=== PATIENT | male | born 1945 | race Caucasian/White ===

== ENCOUNTER 2020-08-27 01:11 | Inpatient (IN) | payer MEDICARE ==
--- NOTE | 2020-08-27 01:40 | ER Document Report ---
ED Fall - General Chief Complaint: Fall Stated Complaint: FALL Time Seen by Provider: 08/27/20 01:32 Primary Care Provider: RANDY KATHLEEN MD [Primary Care Provider] - Follow up as needed Mode of Arrival: Medic Information source: Patient, Emergency Med Personnel Notes: 75-year-old male arrives with chief complaint of weakness after he was walking from bedroom to the living room and his cane collapsed and he fell down. This occurred around 2000 hrs. he said he laid there for several hours. Patient has a history of CHF and hypertension. He was diagnosed with heart failure last year and over 8 years ago he was diagnosed with hyperglycemia patient reports has had 2 MIs in the past 1 at [place] and one at [facility]. He has a chronically irritated left eye. He also has his right leg edema +2 pitting greater than his left leg +1 pitting. He denies any chest pain abdominal pain shortness of breath. He reports he smokes 1 pack/day since he was a teenager and denies any history of COPD. Patient's oxygen saturations were 82% on oxygen while he was in the room. He was then placed on BiPAP and saturations climbed to 96% daughter reports he has not been taking his medicines properly. Patient's daughter Beatris is a good historian and she advises that his in 2011 and after being very desponded about this he has been on and off taking his medications especially over the last 3 to 4 months he has not taken any of his heart medications. She reports he says they make him feel tired and drained and do not work. He feels a lot better when he does not take them. - HPI Occurred: This evening Where: Home Context: Lost balance Associated symptoms: Difficulty breathing Quality of pain: No pain - Related data Allergies/Adverse Reactions: No Known Allergies Allergy (Verified 05/06/12 06:29) Past Medical History - General Information source: Patient, Relative, Emergency Med Personnel - Social History Smoking Status: Current Every Day Smoker Cigarette use (# per day): Yes Chew tobacco use (# tins/day): No Smoking Education Provided: Yes Frequency of alcohol use: Occasional Drug Abuse: None Lives with: Family Family History: Reviewed & Not Pertinent, COPD, DM Patient has suicidal ideation: No Patient has homicidal ideation: No Pulmonary Medical History: Denies: Hx Tuberculosis Psychiatric Medical History: Reports: Hx Depression Past Surgical History: Denies: Hx Pacemaker - Immunizations Hx Diphtheria, Pertussis, Tetanus Vaccination: Yes Review of Systems - Review of Systems Constitutional: No symptoms reported, See HPI, Weakness EENT: No symptoms reported Cardiovascular: No symptoms reported Respiratory: See HPI, Short of breath, Wheezing Gastrointestinal: No symptoms reported Genitourinary: No symptoms reported Male Genitourinary: No symptoms reported Musculoskeletal: See HPI, Leg swelling, Ankle swelling Skin: No symptoms reported Hematologic/Lymphatic: No symptoms reported Neurological/Psychological: See HPI, Weakness -: Yes All other systems reviewed and negative Physical Exam - Vital signs Vitals: Resp Pulse Ox 15 94 08/27/20 02:05 08/27/20 02:05 Interpretation: Hypoxic - General General appearance: Appears well, Alert - HEENT Head: Normocephalic, Atraumatic, Other - Except for 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 Eyes: Normal Extraocular movements intact: Yes Pupils: PERRL Ears: Normal Tympanic membrane: Normal Nasal: Normal Mouth/Lips: Normal Mucous membranes: Dry Pharynx: Normal Neck: Normal - Respiratory Respiratory status: Pursed lip breathing Chest status: Nontender Breath sounds: Wheezing Chest palpation: Normal - Cardiovascular Rhythm: Regular Heart sounds: Normal auscultation Murmur: No - Abdominal Inspection: Normal Distension: No distension Bowel sounds: Normal Tenderness: Nontender Organomegaly: No organomegaly - Rectal Prostate: Other - Deferred - Genitourinary Scrotum: Other - Deferred - Back Back: Normal, Nontender - Extremities General upper extremity: Normal inspection, Nontender, Normal color, Normal ROM, Normal temperature General lower extremity: Normal inspection, Nontender, Normal color, Normal ROM, Normal temperature, Normal weight bearing. No: Srinivasa's sign - Neurological Neuro grossly intact: Yes Cognition: Normal Orientation: AAOx4 [place] Coma Scale Eye Opening: Spontaneous [place] Coma Scale Verbal: Oriented [place] Coma Scale Motor: Obeys Commands [place] Coma Scale Total: 15 Speech: Normal Motor strength normal: LUE, RUE, LLE, RLE Sensory: Normal - Psychological Associated symptoms: Normal affect, Normal mood - Skin Skin Temperature: Warm Skin Moisture: Dry Skin Color: Dusky Course - Vital Signs Vital signs: Temp Pulse Resp BP Pulse Ox 15 94 08/27/20 02:05 08/27/20 02:05 - Laboratory Result Diagrams: 08/27/20 01:17 08/27/20 01:17 Laboratory results interpreted by me: 08/27/20 08/27/20 08/27/20 01:17 01:17 01:17 WBC 10.6 H Hgb 17.2 H Hct 52.0 H RDW 15.2 H Lymph % (Auto) 8.1 L Absolute Neuts (auto) 8.9 H Seg Neutrophils % 83.4 H PT 15.9 H ABG pO2 ABG HCO3 ABG O2 Saturation Chloride 97 L Glucose 155 H Total Bilirubin 1.8 H Direct Bilirubin 0.5 H Alkaline Phosphatase 169 H Total Protein 8.3 H 08/27/20 01:57 WBC Hgb Hct RDW Lymph % (Auto) Absolute Neuts (auto) Seg Neutrophils % PT ABG pO2 57.4 L ABG HCO3 24.9 H ABG O2 Saturation 90.0 L Chloride Glucose Total Bilirubin Direct Bilirubin Alkaline Phosphatase Total Protein - Diagnostic Test Radiology reviewed: Reports reviewed - EKG Interpretation by Me EKG shows normal: Sinus rhythm Rate: Normal Rhythm: NSR - Heart rate [address] depression along the inferior leads. Mild T wave changes laterally. Critical Care Note - Critical Care Note Comments: I discussed this case with Dr. Sourav Watson and he advises he will see this patient for admission this was done at 0 230 Discharge - Discharge Clinical Impression: Hypoxia, COVID-19 virus test result unknown Fall Qualifiers: Encounter type: initial encounter Qualified Code(s): W19.XXXA - Unspecified fall, initial encounter COPD (chronic obstructive pulmonary disease) Qualifiers: COPD type: emphysema Emphysema type: unspecified Qualified Code(s): J43.9 - Emphysema, unspecified Condition: Stable Disposition: ADMITTED INPATIENT [facility] Admitted: Telemetry Referrals: RANDY KATHLEEN MD [Primary Care Provider] - Follow up as needed
[2020-08-27 01:51] LABS: ABSOLUTE BASOPHILS # (AUTO) 0.1 10^3/uL (0.0-0.2); ABSOLUTE LYMPHOCYTES (AUTO) 0.9 10^3/uL (0.5-4.7); ABSOLUTE MONOCYTES (AUTO) 0.8 10^3/uL (0.1-1.4); ABSOLUTE NEUT (AUTO) 8.9 10^3/uL (1.7-8.2); BASOPHILS % (AUTO) 0.6 % (0-2); EOSINOPHILS % (AUTO) 0.2 % (0-6); HEMOGLOBIN 17.2 g/dL (13.5-17.0); LYMPHOCYTES % (AUTO) 8.1 % (13-45); MEAN CORPUSCULAR HGB CONC 33.1 g/dL (32.0-36.0); MEAN CORPUSCULAR VOLUME 97 fl (80-97); MONOCYTES % (AUTO) 7.7 % (3-13); PLATELET COUNT 300 10^3/uL (150-450); RED BLOOD COUNT 5.39 10^6/uL (4.35-5.55); RED CELL DISTRIBUTION WIDTH 15.2 % (11.5-14.0); SEGMENTED NEUTROPHILS % (AUTO) 83.4 % (42-78); TOTAL CELLS COUNTED % (AUTO) 100 %; WHITE BLOOD COUNT 10.6 10^3/uL (4.0-10.5)
[2020-08-27 01:56] LABS: INTERNATIONAL RATION (INR) 1.25
[2020-08-27 01:58] LABS: PROTHROMBIN TIME 15.9 SEC (11.4-15.4)
[2020-08-27 02:05] LABS: ARTERIAL BLOOD BASE EXCESS 0.2 mmol/L; ARTERIAL BLOOD H2CO3 1.23 mmol/L (1.05-1.35); ARTERIAL BLOOD HCO3 24.9 mmol/L (20-24); ARTERIAL BLOOD PO2 57.4 mmHg (80-100); ARTERIAL BLOOD TOTAL CO2 26.2 mmol/L (23-27)
[2020-08-27 02:09] LABS: ALBUMIN 4.4 g/dL (3.5-5.0); ALKALINE PHOSPHATASE 169 U/L (38-126); ANION GAP 15 (5-19); ASPARTATE AMINO TRANSFERASE 37 U/L (17-59); BILIRUBIN,DIRECT 0.5 mg/dL (0.0-0.4); BILIRUBIN,TOTAL 1.8 mg/dL (0.2-1.3); BLOOD UREA NITROGEN 13 mg/dL (7-20); CALCIUM 9.7 mg/dL (8.4-10.2); CARBON DIOXIDE 26 mmol/L (22-30); CHLORIDE 97 mmol/L (98-107); GLUCOSE 155 mg/dL (75-110); POTASSIUM 4.2 mmol/L (3.6-5.0); TOTAL PROTEIN 8.3 g/dL (6.3-8.2)
[2020-08-27 02:10] LABS: ALCOHOL < 10 mg/dL (NONE DETECTED)
[2020-08-27 02:10] LABS: ARTERIAL BLOOD FIO2 15L
[2020-08-27] MEDS ORDERED: BUMETANIDE INJ/PF 1 MG/4 ML SDV IV ONE (02:22)
[2020-08-27] MEDS ORDERED: AZITHROMYCIN INJ 500 MG VIAL IV ONE (02:22)
[2020-08-27] MEDS ORDERED: FAMOTIDINE INJ/PF 20 MG/2 ML SDV IV ONE (02:22)
[2020-08-27] MEDS ORDERED: DEXAMETHASONE SOD PHOS INJ 10 MG/1 ML VIAL IV ONE (02:23)
--- NOTE | 2020-08-27 02:23 | RADIOLOGY REPORT (SQ) ---
CLINICAL INDICATION: weak . TECHNIQUE: A single portable AP view was obtained of the chest at 0151 hours. COMPARISON: April 06, 2012. FINDINGS: The cardiomediastinal silhouette is enlarged and appears larger than it did in 2012. The lungs again demonstrate chronic purple lung change. Progressive airspace and pleural disease right lung base when compared to prior. No pneumothorax. The visualized bones are unremarkable. IMPRESSION: Progressive airspace and pleural disease right lung base when compared to prior.
[2020-08-27 02:24] LABS: TROPONIN I 0.044 ng/mL
--- NOTE | 2020-08-27 02:27 | RADIOLOGY REPORT (SQ) ---
INDICATION: weak, AMS. COMPARISON: None available CORRELATION: None TECHNIQUE: Noncontrast spiral axial CT images were obtained from the skull base to vertex. This exam was performed according to our departmental dose-optimization program, which includes automated exposure control, adjustment of the mA and/or kV according to patient size and/or use of iterative reconstruction techniques. FINDINGS: There is no evidence of acute intracranial hemorrhage, midline shift, mass effect or mass lesion. Shanks-white differentiation is normal. There is no evidence of acute large territory infarct. Ventricles and extracerebral spaces are within normal limits, for age. The visualized paranasal sinuses demonstrate retention cyst right maxillary sinus. The orbits and eyeballs are unremarkable. The mastoid air cells are clear. Skull base and calvarium appear intact. Trace venous air, presumed iatrogenic IMPRESSION: No acute intracranial process is identified.
[2020-08-27] MEDS ORDERED: IPRATROPIUM/ALBUTEROL 0.5-2.5 MG/3 ML AMPUL NEB PRN (03:09)
[2020-08-27] MEDS ORDERED: ACETAMINOPHEN 325 MG TABLET PO PRN (03:09)
[2020-08-27 03:23] LABS: APPEARANCE,URINE SLIGHTLY-CLOUDY; BILIRUBIN,URINE NEGATIVE (NEGATIVE); COLOR,URINE AMBER; GLUCOSE, URINE NEGATIVE (NEGATIVE); KETONES,URINE TRACE mg/dL (NEGATIVE); LEUKOCYTE ESTERASE,URINE NEGATIVE (NEGATIVE); NITRITE,URINE NEGATIVE (NEGATIVE); PROTEIN,URINE 100 mg/dL (NEGATIVE); URINE SPECIFIC GRAVITY 1.021
[2020-08-27] MEDS ORDERED: DEXTROSE 50%-WATER 25 GM/50 ML DISP.SYRIN IV PRN ×2 (03:39)
[2020-08-27] MEDS ORDERED: DEXTROSE 40% GEL 15 GM TUBE PO PRN ×2 (03:39)
[2020-08-27] MEDS ORDERED: GLUCAGON,HUMAN RECOMB 1 MG INJ IM PRN (03:39)
--- NOTE | 2020-08-27 04:48 | PDOC H&P ---
History of Present Illness Admission Date/PCP: 08/27/20 02:48 ELPIDIO GRUBER PA-C Patient complains of: Fall, shortness of breath History of Present Illness: KELSY ZHENG is a 75 year old male with a history of CAD status post PCI, type 2 diabetes, hypertension and CHF who is brought in by his daughter after he had a fall this evening around 8 PM. Patient states that while he was trying to walk to the bedroom using his walker he slipped and fell down to the ground and was unable to get up until his daughter found him. Patient states that he does not know if he lost consciousness but he denies any chest pain, palpitation or lightheadedness immediately before or during the incident. He states he has been having a progressively worsening shortness of breath for the past few weeks with associated lower extremity swelling. He discontinued taking all his medications about 3 months back stating that they make him feel tired, unable to do anything and he says he feels better when he is not on medications. Currently he reports worsening of his back pain. Patient denies any chest pain, dizziness, palpitation, fever, cough, runny nose, body aches, nausea, vomiting or any change in his bowel or urinary habit. He denies any recent sick contact history. On arrival at the ED patient was saturating 82% on room air and he was placed on BiPAP which improved his saturation above 95%. Past Medical History Pulmonary Medical History: Denies: Tuberculosis Psychiatric Medical History: Reports: Depression Past Surgical History Past Surgical History: Denies: Pacemaker Social History Information Source: Patient Lives with: Alone Smoking Status: Current Every Day Smoker Hx Recreational Drug Use: No Drugs: None Hx Prescription Drug Abuse: No - Advance Directive Resuscitation Status: Full Code Family History Family History: Reviewed & Not Pertinent, COPD, DM Parental Family History Reviewed: Yes Children Family History Reviewed: Yes Sibling(s) Family History Reviewed.: Yes Medication/Allergy Home Medications: No Home Medications 1 05/06/12 Cephalexin Monohydrate [Keflex 500 mg Capsule] 500 mg PO QID 05/07/12 Glipizide [Glucotrol Xl 5 Mg Tab.Er] 5 mg PO QAM 05/07/12 Lisinopril [Prinivil 5 Mg Tablet] 5 mg PO DAILY 05/07/12 Metformin HCl [Glucophage 500 Mg Tablet] 500 mg PO DAILY 05/07/12 Multivit with Calcium,Iron,Min [Tab A Lupe] 1 each PO DAILY 05/07/12 Thiamine HCl [Thiamine 100 Mg Tablet] 100 mg PO DAILY 05/07/12 Allergies/Adverse Reactions: No Known Allergies Allergy (Verified 05/06/12 06:29) Review of Systems Constitutional: PRESENT: as per HPI, weakness Eyes: ABSENT: visual disturbances Ears: ABSENT: hearing changes Nose, Mouth, and Throat: ABSENT: headache(s), mouth pain, sore throat Cardiovascular: PRESENT: as per HPI Respiratory: PRESENT: as per HPI Gastrointestinal: ABSENT: abdominal pain, constipation, diarrhea, hematemesis, hematochezia, nausea, vomiting Genitourinary: ABSENT: dysuria, hematuria Musculoskeletal: PRESENT: back pain, muscle weakness Integumentary: ABSENT: rash, wounds Neurological: ABSENT: abnormal gait, abnormal speech, confusion, dizziness, focal weakness, syncope Psychiatric: PRESENT: depression. ABSENT: anxiety, homidical ideation, suicidal ideation Endocrine: ABSENT: cold intolerance, heat intolerance, polydipsia, polyuria Hematologic/Lymphatic: ABSENT: easy bleeding, easy bruising Physical Exam Vital Signs: Temp Pulse Resp BP Pulse Ox 97.1 F 22 H 156/109 H 94 08/27/20 02:08 08/27/20 02:08 08/27/20 02:08 08/27/20 02:08 Intake & Output 08/25/20 08/26/20 08/27/20 06:59 06:59 06:59 Weight 67.8 kg Additional comments: GENERAL APPEARANCE: Alert and oriented x3, mild respiratory distress HEENT: Normocephalic and atraumatic. Left eye has pink conjunctiva. Moist oral mucosa NECK: Supple. Has elevated JVD CHEST: Symmetric. Nontender to palpation. LUNGS: Clear with good air entry bilaterally. Has coarse crackles bilaterally. No wheezing appreciated HEART: Regular rate and rhythm with normal S1 and S2. No murmurs, gallops, or rubs. ABDOMEN: soft, active bowel sounds, no direct or rebound tenderness. No organomegaly detected. No CVA tenderness EXTREMITIES: No cyanosis, clubbing. Has bilateral lower extremity pitting edema with the right +2, left +1 MUSCULOSKELETAL: No deformity, atrophy noted PSYCHIATRIC: Recent and remote memory is intact. Appropriate mood and affect. SKIN: Warm, dry, and well perfused. NEUROLOGIC: No focal sensory or motor deficits are noted. Results Laboratory Results: 08/27/20 01:17 08/27/20 01:17 08/27/20 08/27/20 08/27/20 01:17 01:17 01:57 WBC 10.6 H RBC 5.39 Hgb 17.2 H Hct 52.0 H MCV 97 MCH 32.0 MCHC 33.1 RDW 15.2 H Plt Count 300 Seg Neutrophils % 83.4 H Carbonic Acid HCO3/H2CO3 Ratio ABG pH ABG pCO2 ABG pO2 ABG HCO3 ABG O2 Saturation ABG Base Excess FiO2 Sodium 137.7 Potassium 4.2 Chloride 97 L Carbon Dioxide 26 Anion Gap 15 BUN 13 Creatinine 1.00 Est GFR ( Amer) > 60 Glucose 155 H Lactic Acid 2.9 H Calcium 9.7 Total Bilirubin 1.8 H AST 37 Alkaline Phosphatase 169 H Total Protein 8.3 H Albumin 4.4 Urine Color Urine Appearance Urine pH Ur Specific [place] Urine Protein Urine Glucose (UA) Urine Ketones Urine Blood Urine Nitrite Ur Leukocyte Esterase Urine WBC (Auto) Urine RBC (Auto) 08/27/20 08/27/20 01:57 02:43 WBC RBC Hgb Hct MCV MCH MCHC RDW Plt Count Seg Neutrophils % Carbonic Acid 1.23 HCO3/H2CO3 Ratio 20:1 ABG pH 7.40 ABG pCO2 41.0 ABG pO2 57.4 L ABG HCO3 24.9 H ABG O2 Saturation 90.0 L ABG Base Excess 0.2 FiO2 15L Sodium Potassium Chloride Carbon Dioxide Anion Gap BUN Creatinine Est GFR ( Amer) Glucose Lactic Acid Calcium Total Bilirubin AST Alkaline Phosphatase Total Protein Albumin Urine Color JOSE Urine Appearance SLIGHTLY-CLOUDY Urine pH 5.0 Ur Specific [place] 1.021 Urine Protein 100 H Urine Glucose (UA) NEGATIVE Urine Ketones TRACE H Urine Blood NEGATIVE Urine Nitrite NEGATIVE Ur Leukocyte Esterase NEGATIVE Urine WBC (Auto) 1 Urine RBC (Auto) 0 08/27/20 01:17 Troponin I 0.044 NT-Pro-B Natriuret Pep 25610 H Impressions: Chest X-Ray 08/27/20 01:34 IMPRESSION: Progressive airspace and pleural disease right lung base when compared to prior. Head CT 08/27/20 01:34 IMPRESSION: No acute intracranial process is identified. Assessment and Plan - Diagnosis (1) Acute respiratory failure with hypoxia Is this a current diagnosis for this admission?: Yes Plan: Patient presents with worsening shortness of breath Oxygen saturation on arrival was 82% on room air Likely due to acute on chronic congestive heart failure and possible previously undiagnosed COPD exacerbation Chest x-ray shows progressive airspace pleural disease with cardiomegaly ABG showed pH/PCO2/PO2=> 7.4 0/41/57 Started on Lasix, strict I&O's, daily weight, fluid restriction Continue breathing treatment, steroid Currently saturating well on a BiPAP and will transfuse him to intranasal oxygen Was tested for COVID-19 at ED, follow-up with result (2) Acute on chronic congestive heart failure Is this a current diagnosis for this admission?: Yes Plan: Likely precipitated by medication noncompliance Presents with shortness of breath, orthopnea, leg swelling Chest x-ray shows a pattern of airspace disease, cardiomegaly and some sign of pulmonary vascular congestion BNP elevated at 25,000 Started on IV Lasix Strict I&O's, daily weight, fluid restriction 2D echo in the morning (3) Elevated troponin Is this a current diagnosis for this admission?: Yes Plan: Currently patient denies any chest pain Has a history of CAD s/p PCI a year ago Initial troponin was 0.044 EKG shows right bundle branch block We will continue trending cardiac enzymes and EKG every 6 hourly Restarted him on aspirin, Plavix, atorvastatin, metoprolol Will consider cardiology consult (4) Elevated lactic acid level Is this a current diagnosis for this admission?: Yes Plan: Likely due to hypoxia from heart failure Currently has no sign of sepsis Repeat lactic acid level in the morning (5) Type 2 diabetes mellitus Is this a current diagnosis for this admission?: Yes Plan: Patient has been off of his medication for the past 3 months He is on Metformin and glipizide at home Started him on sliding scale insulin, Accu-Chek and hypoglycemia protocol On diabetic diet (6) Hypertension Is this a current diagnosis for this admission?: Yes Plan: Restarted patient's home medication occluding losartan, metoprolol Low-sodium diet (7) History of coronary artery disease Is this a current diagnosis for this admission?: Yes Plan: CAD status post PCI a year ago, now chest pain-free Cardiac enzyme and EKG for elevated troponin as stated above Continue aspirin, Plavix and atorvastatin (8) Tobacco dependence Is this a current diagnosis for this admission?: Yes Plan: Currently patient smokes 1 pack a day Provided tobacco cessation counseling Patient declined nicotine patch while inpatient (9) Fall Qualifiers: Encounter type: initial encounter Qualified Code(s): W19.XXXA - Unspecified fall, initial encounter Is this a current diagnosis for this admission?: Yes Plan: Likely due to physical deconditioning CT head was negative for acute findings On fall precaution PT, OT consult has been placed (10) Swelling of left lower extremity Is this a current diagnosis for this admission?: Yes Plan: Patient has bilateral lower extremity swelling with the left greater than the right We will obtain Doppler venous ultrasound of the left lower extremity - Time Time Spent with patient: 35 or more minutes Total Critical Time (Minutes): 45 Smoking Cessation Education: 3 to 10 minutes Medications reviewed and adjusted accordingly: Yes Anticipated Discharge Disposition: [facility] Anticipated Discharge Timeframe: within 72 hours - Inpatient Certification Based on my medical assessment, after consideration of the patient's comorbidities, presenting symptoms, or acuity I expect that the services needed warrant INPATIENT care.: Yes I certify that my determination is in accordance with my understanding of Medicare's requirements for reasonable and necessary INPATIENT services [42 CFR 412.3e].: Yes Medical Necessity: Significant Comorbidiites Make Outpatient Treatment Too Risky, Need Close Monitoring Due to Risk of Patient Decompensation, Need For Continuous Telemetry Monitoring, Risk of Complication if Not Cared For in Hospital Post Hospital Care: D/C or Transfer Summary
--- NOTE | 2020-08-27 08:34 | EKG REPORT ---
SEVERITY:- ABNORMAL ECG - SINUS RHYTHM LEFT ATRIAL ABNORMALITY RBBB AND LPFB : Confirmed by: Lorraine Husain MD 27-Aug-2020 08:33:47
[2020-08-27] MEDS: INSULIN REG, HUMAN 100 UNIT/ML 3 ML VIAL (PYX) SUBCUT SCH ×4 (08:38→22:59)
[2020-08-27] MEDS: FUROSEMIDE INJ/PF 40 MG/4 ML SDV IV SCH ×2 (09:07→22:56)
[2020-08-27] MEDS: ENOXAPARIN SODIUM INJ 40 MG/0.4 ML DISP.SYRIN SUBCUT SCH (09:07)
[2020-08-27] MEDS: CLOPIDOGREL BISULFATE 75 MG TABLET PO SCH (09:10)
[2020-08-27] MEDS: OXYCODONE-ACETAMINOPHEN 5-325 MG TABLET PO PRN ×2 (09:10→18:07)
[2020-08-27] MEDS: ASPIRIN 81 MG TABLET, CHEWABLE PO SCH (09:10)
[2020-08-27] MEDS: FAMOTIDINE 20 MG TABLET PO SCH ×2 (09:11→22:56)
[2020-08-27] MEDS ORDERED: METOPROLOL SUCCINATE 25 MG TAB.SR.24H PO SCH (10:00)
[2020-08-27] MEDS ORDERED: LOSARTAN POTASSIUM 25 MG TABLET PO SCH (10:00)
[2020-08-27 11:54] LABS: TRIGLYCERIDES 62 mg/dL (<150)
[2020-08-27 11:59] LABS: ANION GAP 13 (5-19); BLOOD UREA NITROGEN 17 mg/dL (7-20); C-REACTIVE PROTEIN 43.6 mg/L (<10.0); CARBON DIOXIDE 21 mmol/L (22-30); CHLORIDE 100 mmol/L (98-107); GLUCOSE 237 mg/dL (75-110); POTASSIUM 4.2 mmol/L (3.6-5.0)
[2020-08-27 12:06] LABS: DIRECT LDL 52 mg/dL (<100)
--- NOTE | 2020-08-27 12:17 | RADIOLOGY REPORT (SQ) ---
EXAM DESCRIPTION: MRI HEAD WITHOUT IMAGES COMPLETED DATE/TIME: 08/27/2020 11:59 am REASON FOR STUDY: TIA/CVA (fall, slurred speech) COMPARISON: None. TECHNIQUE: Multiplanar imaging includes non-contrasted T1, T2, FLAIR, and diffusion with ADC map seq uences. Images stored on PACS. LIMITATIONS: None. FINDINGS: ANATOMY: No anomalies. Normal vascular flow voids. Pituitary fossa normal. CSF SPACES: Normal in size and contour. No hemorrhage. CEREBRUM: Sulci and gyri normal in size and contour. Areas of increased white matter signal on FLAIR imaging. No evidence of hemorrhage, mass, or extraaxial fluid collection. POSTERIOR FOSSA: No signal alteration. No hemorrhage. No edema, masses or mass effect. Internal brenda tory canals, cerebello-pontine angles, mastoids normal. DIFFUSION IMAGING: Negative for acute or sub-acute infarction. ORBITS: No masses. Globes normal. PARANASAL SINUSES: Mucous retention cyst in the right maxillary sinus. OTHER: No other significant finding. IMPRESSION: Mild chronic microvascular ischemia. Right maxillary sinus disease. No acute intracran ial imaging findings. EVIDENCE OF ACUTE STROKE: NO. TECHNICAL DOCUMENTATION: JOB ID: [id number] [employer]- All Rights Reserved Reading location - IP/workstation name: [email or web address]
[2020-08-27] MEDS ORDERED: NICOTINE 21 MG/24 HR PATCH.TD24 TD PRN (15:20)
--- NOTE | 2020-08-27 15:25 | PDOC PROGRESS REPORT ---
Subjective Date:: 08/27/20 Reason For Visit: FALL, COPD Physical Exam Vital Signs: Temp Pulse Resp BP Pulse Ox 97.6 F 90 18 128/95 H 95 08/27/20 11:27 08/27/20 11:27 08/27/20 11:27 08/27/20 11:27 08/27/20 11:27 Intake & Output 08/26/20 08/27/20 08/28/20 06:59 06:59 06:59 Output Total 100 Balance -100 Weight 66 kg General appearance: PRESENT: no acute distress, well-developed, well-nourished Head exam: PRESENT: atraumatic, normocephalic Eye exam: PRESENT: conjunctival injection - Left eye; no drainage, conjunctiva pink, EOMI, PERRLA, other. ABSENT: scleral icterus Mouth exam: PRESENT: moist, tongue midline Teeth exam: PRESENT: poor dentation Neck exam: PRESENT: JVD. ABSENT: carotid bruit, lymphadenopathy, thyromegaly Respiratory exam: PRESENT: crackles, symmetrical, unlabored, other - supplemental oxygen. ABSENT: rales, rhonchi, wheezes Cardiovascular exam: PRESENT: RRR, +S1, +S2. ABSENT: diastolic murmur, rubs, systolic murmur Pulses: PRESENT: normal dorsalis pedis pul Vascular exam: PRESENT: normal capillary refill GI/Abdominal exam: PRESENT: normal bowel sounds, soft. ABSENT: distended, guarding, mass, organolmegaly, rebound, tenderness Rectal exam: PRESENT: deferred Gentrourinary exam: PRESENT: indwelling catheter Extremities exam: PRESENT: full ROM, +1 edema - RLE. ABSENT: calf tenderness, clubbing, pedal edema Neurological exam: PRESENT: alert, awake, oriented to person, oriented to place, oriented to time, oriented to situation, CN II-XII grossly intact, other - Rt facial droop; slurred speech. [employer] equal bilaterally. Plantar/dorsi felxion 4/5 bilaterally.. ABSENT: motor sensory deficit Psychiatric exam: PRESENT: appropriate affect, normal mood. ABSENT: homicidal ideation, suicidal ideation Skin exam: PRESENT: dry, intact, warm. ABSENT: cyanosis, rash Results Laboratory Results: 08/27/20 01:17 08/27/20 11:24 08/27/20 08/27/20 08/27/20 01:17 01:17 01:57 WBC 10.6 H RBC 5.39 Hgb 17.2 H Hct 52.0 H MCV 97 MCH 32.0 MCHC 33.1 RDW 15.2 H Plt Count 300 Seg Neutrophils % 83.4 H Carbonic Acid HCO3/H2CO3 Ratio ABG pH ABG pCO2 ABG pO2 ABG HCO3 ABG O2 Saturation ABG Base Excess FiO2 Sodium 137.7 Potassium 4.2 Chloride 97 L Carbon Dioxide 26 Anion Gap 15 BUN 13 Creatinine 1.00 Est GFR ( Amer) > 60 Glucose 155 H Lactic Acid 2.9 H Calcium 9.7 Ferritin Total Bilirubin 1.8 H AST 37 Alkaline Phosphatase 169 H C-Reactive Protein Total Protein 8.3 H Albumin 4.4 Triglycerides Cholesterol LDL Cholesterol Direct VLDL Cholesterol HDL Cholesterol Urine Color Urine Appearance Urine pH Ur Specific [place] Urine Protein Urine Glucose (UA) Urine Ketones Urine Blood Urine Nitrite Ur Leukocyte Esterase Urine WBC (Auto) Urine RBC (Auto) 08/27/20 08/27/20 08/27/20 01:57 02:43 10:06 WBC RBC Hgb Hct MCV MCH MCHC RDW Plt Count Seg Neutrophils % Carbonic Acid 1.23 HCO3/H2CO3 Ratio 20:1 ABG pH 7.40 ABG pCO2 41.0 ABG pO2 57.4 L ABG HCO3 24.9 H ABG O2 Saturation 90.0 L ABG Base Excess 0.2 FiO2 15L Sodium Potassium Chloride Carbon Dioxide Anion Gap BUN Creatinine Est GFR ( Amer) Glucose Lactic Acid 1.9 Calcium Ferritin Total Bilirubin AST Alkaline Phosphatase C-Reactive Protein Total Protein Albumin Triglycerides Cholesterol LDL Cholesterol Direct VLDL Cholesterol HDL Cholesterol Urine Color JOSE Urine Appearance SLIGHTLY-CLOUDY Urine pH 5.0 Ur Specific [place] 1.021 Urine Protein 100 H Urine Glucose (UA) NEGATIVE Urine Ketones TRACE H Urine Blood NEGATIVE Urine Nitrite NEGATIVE Ur Leukocyte Esterase NEGATIVE Urine WBC (Auto) 1 Urine RBC (Auto) 0 08/27/20 08/27/20 11:24 11:24 WBC RBC Hgb Hct MCV MCH MCHC RDW Plt Count Seg Neutrophils % Carbonic Acid HCO3/H2CO3 Ratio ABG pH ABG pCO2 ABG pO2 ABG HCO3 ABG O2 Saturation ABG Base Excess FiO2 Sodium 133.6 L Potassium 4.2 Chloride 100 Carbon Dioxide 21 L Anion Gap 13 BUN 17 Creatinine 0.99 Est GFR ( Amer) > 60 Glucose 237 H Lactic Acid Calcium 9.0 Ferritin 107.00 Total Bilirubin AST Alkaline Phosphatase C-Reactive Protein 43.6 H Total Protein Albumin Triglycerides 62 Cholesterol 96.30 LDL Cholesterol Direct 52 VLDL Cholesterol 12.0 HDL Cholesterol 35 L Urine Color Urine Appearance Urine pH Ur Specific [place] Urine Protein Urine Glucose (UA) Urine Ketones Urine Blood Urine Nitrite Ur Leukocyte Esterase Urine WBC (Auto) Urine RBC (Auto) 08/27/20 08/27/20 08/27/20 01:17 06:13 13:30 Troponin I 0.044 0.027 0.030 NT-Pro-B Natriuret Pep 27247 H Impressions: Head MRI 08/27/20 00:00 IMPRESSION: Mild chronic microvascular ischemia. Right maxillary sinus disease. No acute intracranial imaging findings. EVIDENCE OF ACUTE STROKE: NO. Chest X-Ray 08/27/20 01:34 IMPRESSION: Progressive airspace and pleural disease right lung base when compared to prior. Head CT 08/27/20 01:34 IMPRESSION: No acute intracranial process is identified. Assessment and Plan - Diagnosis (1) Acute on chronic congestive heart failure Is this a current diagnosis for this admission?: Yes Plan: Likely precipitated by medication noncompliance Presents with shortness of breath, orthopnea, leg swelling Chest x-ray shows a pattern of airspace disease, cardiomegaly and some sign of pulmonary vascular congestion BNP elevated at 25,000 Echocardiogram pending. Admitted to [facility] on continuous telemetry. Oxygen and BiPAP prn Started on IV Lasix Strict I&O's, daily weight, fluid restriction Have started aspirin, statin and plavix. Have started losartan and Toprol XL. Low threshold for cardiology consultation. 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 (2) Acute respiratory failure with hypoxia Is this a current diagnosis for this admission?: Yes Plan: Patient presents with worsening shortness of breath Oxygen saturation on arrival was 82% on room air Likely due to acute on chronic congestive heart failure and possible previously undiagnosed COPD exacerbation Chest x-ray shows progressive airspace pleural disease with cardiomegaly ABG showed pH/PCO2/PO2=> 7.4 0/57 D. dimer is elevated; will obtain CTA chest COVID pending Started on Lasix, strict I&O's, daily weight, fluid restriction Continue breathing treatment, steroids Continue supplemental oxygen and BiPAP prn (3) Elevated troponin Is this a current diagnosis for this admission?: Yes Plan: Currently patient denies any chest pain Has a history of CAD s/p PCI a year ago Troponin 0.044-> 0.30 EKG shows right bundle branch block Monitor on telemetry Restarted him on aspirin, Plavix, atorvastatin, metoprolol Will consider cardiology consult (4) Fall Qualifiers: Encounter type: initial encounter Qualified Code(s): W19.XXXA - Unspecified fall, initial encounter Is this a current diagnosis for this admission?: Yes Plan: Likely due to physical deconditioning CT head was negative for acute findings MRI negative for CVA On fall precaution PT, OT consult has been placed (5) History of coronary artery disease Is this a current diagnosis for this admission?: Yes Plan: CAD status post PCI a year ago, now chest pain-free Cardiac enzyme and EKG for elevated troponin as stated above Continue aspirin, Plavix and atorvastatin (6) Hypertension Is this a current diagnosis for this admission?: Yes Plan: Antihypertensives as above. Low-sodium diet (7) Swelling of left lower extremity Is this a current diagnosis for this admission?: Yes Plan: Patient has bilateral lower extremity swelling with the left greater than the right We will obtain Doppler venous ultrasound of the left lower extremity (8) Tobacco dependence Is this a current diagnosis for this admission?: Yes Plan: Currently patient smokes 1 pack a day Provided tobacco cessation counseling Nicotine patches prn (9) Type 2 diabetes mellitus Is this a current diagnosis for this admission?: Yes Plan: Hemoglobin A1C 7.3% Patient has been off of his medication for the past 3 months He is on Metformin and glipizide at home; will hold oral antidiabetic agents w/ admitted Started him on sliding scale insulin, Accu-Chek and hypoglycemia protocol On diabetic diet preschool assistant principal and patient educator consulted. (10) Elevated lactic acid level Is this a current diagnosis for this admission?: Yes Plan: Resolved. Likely due to hypoxia from heart failure Currently has no sign of sepsis (11) Suspected COVID-19 virus infection Is this a current diagnosis for this admission?: Yes Plan: Covid pending D-dimer elevated to 3.32 Ferritin 107, LDH 255, CRP 43.6 Will obtain CTA chest to evaluate for pulmonary embolus versus evidence of viral pneumonia versus pulmonary edema. Consider full dose Lovenox pending CTA and Covid testing results. Provide supplemental oxygen as needed maintain saturations greater than 89%. As needed nebulizer treatments. Encourage pulmonary toilet. Isolation precautions. (12) Slurred speech Is this a current diagnosis for this admission?: Yes Plan: CVA is RULED OUT. Patient noted to have slurred speech and a slight right side facial droop. Patient reports that his speech is worse than his baseline. Per family, the patient does have intermittent slurred speech although he is currently worse than normal. Patient did experience a fall at home. He is diabetic with hypertension and CAD; has not been taking his medications for [address] was negative for acute findings. Fortunately follow-up MRI head was negative for CVA. Did show right maxillary sinus disease. Echocardiogram and carotid Doppler pending. Lipid panel is acceptable. A1c 7.3. Continues on daily aspirin, statin, Plavix therapy. PT/OT/ST consultations pending. - Time Time Spent with patient: 35 or more minutes Medications reviewed and adjusted accordingly: Yes Anticipated Discharge Disposition: Home with Home Health Anticipated Discharge Timeframe: >72 hrs
--- NOTE | 2020-08-27 16:15 | RADIOLOGY REPORT (SQ) ---
EXAM DESCRIPTION: CAROTID DOPPLER IMAGES COMPLETED DATE/TIME: 08/27/2020 4:03 pm REASON FOR STUDY: CVA COMPARISON: None. TECHNIQUE: Grayscale ultrasound, Doppler velocity and spectra, and color Doppler images acquired of the extra-cranial carotid and vertebral arteries. Images stored on PACS. LIMITATIONS: None. FINDINGS: RIGHT CAROTID CCA Velocities: Within normal limits. ICA Velocities Peak systolic 2.95 m/s. End diastolic 1.15 m/s. Proximal ICA/CCA peak systolic ratio 10.8. Moderate plaque proximal ICA. LEFT CAROTID CCA Velocities: Within normal limits. ICA Velocities Peak systolic 0.34 m/s. End diastolic 0.1 m/s. Proximal ICA/CCA peak systolic ratio 1.14. Mild plaque bifurcation and proximal ICA. VERTEBRAL ARTERIES: Antegrade flow. Normal waveforms. SUBCLAVIAN ARTERIES: Not imaged. OTHER: No other significant finding. IMPRESSION: Right: 70-90% stenosis ICA. Left: No significant stenosis. RECOMMENDATION: Consider correlation with CT angiography. Doppler can overestimate degree of stenos is. COMMENT: Quality ID #[id number]: Velocity criteria are extrapolated from the diameter data as defined by t he Society of Radiologists in Ultrasound Consensus Conference. Radiology 2003: 229; 340-346. TECHNICAL DOCUMENTATION: JOB ID: [id number] 2010 [employer]- All Rights Reserved Reading location - IP/workstation name: [email or web address]
--- NOTE | 2020-08-27 16:15 | RADIOLOGY REPORT (SQ) ---
EXAM DESCRIPTION: VENOUS UNILATERAL LOWER IMAGES COMPLETED DATE/TIME: 08/27/2020 4:02 pm REASON FOR STUDY: Right lower extremity swelling to rule out DVT COMPARISON: None. TECHNIQUE: Dynamic and static vieira scale and color images acquired of the right leg venous system. S elected spectral images acquired with additional compression and augmentation maneuvers. The contrala teral common femoral vein and saphenofemoral junction were also imaged. Images stored on PACS. LIMITATIONS: None. FINDINGS: COMMON FEMORAL: Normal phasicity, compression and augmentation. No visualized echogenic ma terial on vieira scale. No defects on color images. FEMORAL: Normal compression and augmentation. No visualized echogenic material on vieira scale. No defe cts on color images. POPLITEAL: Normal compression, augmentation. No visualized echogenic material on vieira scale. No defec ts on color images. CALF VESSELS: Normal compression, augmentation. No visualized echogenic material on vieira scale. No de fects on color images. GSV and SSV: Normal compression, augmentation. No visualized echogenic material on vieira scale. No def ects on color images. ANY DEEP VENOUS INSUFFICIENCY: Not evaluated. ANY EVIDENCE OF POPLITEAL CYST: No. OTHER: No other significant finding. CONTRALATERAL COMMON FEMORAL VEIN AND SAPHENOFEMORAL JUNCTION: Normal phasicity, compression and augmentation. No visualized echogenic material on vieira scale. No de fects on color images. IMPRESSION: NO EVIDENCE DVT OR SVT IN THE RIGHT LEG. TECHNICAL DOCUMENTATION: JOB ID: [id number] 2010 [employer]- All Rights Reserved Reading location - IP/workstation name: [email or web address]
--- NOTE | 2020-08-27 17:38 | RADIOLOGY REPORT (SQ) ---
EXAM DESCRIPTION: CTA CHEST IMAGES COMPLETED DATE/TIME: 08/27/2020 5:06 pm REASON FOR STUDY: hypoxia, fall, elevated d dimer COMPARISON: None. TECHNIQUE: CT scan of the chest performed using helical scanning technique with dynamic intravenous contrast injection. Images reviewed with lung, soft tissue and bone windows. Reconstructed coronal and sagittal MPR images reviewed. Additional 3 dimensional post-processing performed to develop Maximal Intensity Projection images ([place] P). All images stored on PACS. All CT scanners at this facility use dose modulation, iterative reconstruction, and/or weight based d osing when appropriate to reduce radiation dose to as low as reasonably achievable (ALARA). [facility]: Dose Right [facility]: CareDose [facility]: Dose Right [facility]: Teradose 4D [facility]: [employer] CONTRAST TYPE AND DOSE: contrast/concentration: Isovue 350.00 mmol/ml; Total Contrast Delivered: 65. 0 ml; Total Saline Delivered: 45.7 ml Contrast bolus optimized for the pulmonary arteries. Not diagnostic for the aorta. RENAL FUNCTION: BUN 17 creatinine 1 RADIATION DOSE: CT Rad equipment meets quality standard of care and radiation dose reduction techniq ues were employed. CTDIvol: 13.2 - 14.3 mGy. DLP: 516 mGy-cm. . LIMITATIONS: None. FINDINGS: LUNGS AND PLEURA: Extensive centrilobular emphysema. No focal consolidation. Minimal ple ural effusions. AORTA AND GREAT VESSELS: No aneurysm. Contrast bolus not optimized for the aorta. HEART: No pericardial effusion. Moderate to marked coronary artery calcifications. PULMONARY ARTERIES: No emboli visualized in the main pulmonary arteries or the segmental branches. HILAR AND MEDIASTINAL STRUCTURES: Questionable thickening of the distal esophagus. HARDWARE: None in the chest. UPPER ABDOMEN: No significant findings. Limited exam. THYROID AND OTHER SOFT TISSUES: No masses. No adenopathy. BONES: No acute or significant finding. 3D MIPS: Confirm above findings. OTHER: No other significant finding. IMPRESSION: 1. There is no pulmonary embolus. There is no aortic aneurysm. 2. Extensive pulmonary emphysema. Minimal pleural effusions. 3. Questionable thickening of the distal esophagus. COMMENT: Quality ID # [id number]: Final reports with documentation of one or more dose reduction techniques (e.g., Automated exposure control, adjustment of the mA and/or kV according to patient size, use of iterative reconstruction technique) TECHNICAL DOCUMENTATION: JOB ID: [id number] 2010 [employer]- All Rights Reserved Reading location - IP/workstation name: [email or web address]
[2020-08-27] MEDS: DEXAMETHASONE SOD PHOSPHATE INJ 4 MG/1 ML VIAL IV SCH (18:07)
[2020-08-27] MEDS ORDERED: ATORVASTATIN CALCIUM 40 MG TABLET PO SCH (22:00)
--- NOTE | 2020-08-27 22:51 | XCELERA REPORT ---
[address] [address] Transthoracic Echocardiogram Report Name: KELSY ZHENG Age: 75 yrs Gender: Male : 1945 Patient Status: Inpatient Patient Location: ^[facility]^A Study Date: 08/27/2020 02:13 PM Height: 71 in Weight: 145 lb BSA: 1.8 m2 Procedure: A two-dimensional transthoracic echocardiogram with color flow and Doppler was performed. Study Quality: Fair. Reason For Study: chf, CVA History: CVA. CHF. Ordering Physician: SUDHIR ROSS Performed By: Nenita Quiros Interpretation Summary The left ventricle is moderately dilated. There is normal left ventricular wall thickness. LV EF is 25% Left ventricular systolic function is severely reduced. Doppler measurements suggest impaired left ventricular relaxation, which is associated with grade I/IV or mild diastolic dysfunction The IV septum and the anteroseptum are moderately hypokinetic.TThe rest of the LV espinoza are severely hypokinetic. Flattened septum is consistent with RV pressure/volume overload There is no thrombus. There is n ASD,VSD , or PFO seen. The right ventricle is moderately dilated. There is mild right ventricular hypertrophy. The right ventricular systolic function is mild to moderately reduced. The right atrium is mild to moderately dilated. The left atrium is moderately dilated. There is no evidence of mitral valve prolapse. There is no vegetation seen on the mitral valve. There is no mitral valve stenosis. There is a moderate to severe amount of mitral regurgitation There is no aortic valvular vegetation. There is no aortic valve stenosis There is no LVOT obstruction. There is a trace amount of aortic regurgitation There is aortic sclerosis without aortic stenosis. There is no tricuspid stenosis. There is servere pulmonary hypertension by echo RVSP is at least 69 mm of Hg , with RA mean of at least 20. There is a moderate to severe amount of tricuspid regurgitation There is no pulmonic valvular regurgitation. The aortic root is normal size. The inferior vena cava appeared dilated and did not change with respiration (RAP > 20 mmHg) There is no pericardial effusion. MMode/2D Measurements & Calculations RVDd: 3.2 cm LVIDd: 5.2 cm FS: 17.1 % EPSS: 1.5 cm IVSd: 0.90 cm LVIDs: 4.3 cm EDV(Teich): 127.7 ml LVPWd: 0.93 cm ESV(Teich): 82.3 ml EF(Teich): 35.5 % Ao root diam: 3.2 cm LVLd ap4: 9.2 cm SV(MOD-sp4): 38.0 ml EDV(MOD-sp4): 108.0 ml Ao root area: 7.9 cm2 LVLs ap4: 8.3 cm ACS: 2.0 cm ESV(MOD-sp4): 70.0 ml LA dimension: 3.4 cm EF(MOD-sp4): 35.2 % Doppler Measurements & Calculations MV E max cecelia: MV P1/2t max cecelia: Ao V2 max: LV V1 max P.3 cm/sec 66.7 cm/sec 89.3 cm/sec 1.2 mmHg MV A max cecelia: MV P1/2t: 52.5 msec Ao max P.2 mmHg LV V1 max: 97.6 cm/sec MVA(P1/2t): 4.2 cm2 54.4 cm/sec MV E/A: 0.68 MV dec slope: 372.4 cm/sec2 MV dec time: 0.18 sec PA V2 max: TR max cecelia: MV P1/2t-pr_phl: 44.3 cm/sec 350.2 cm/sec 52.5 msec PA max PG: TR max P.1 mmHg 0.79 mmHg Left Ventricle The left ventricle is moderately dilated. There is normal left ventricular wall thickness. LV EF is 25%. Left ventricular systolic function is severely reduced. Doppler measurements suggest impaired left ventricular relaxation, which is associated with grade I/IV or mild diastolic dysfunction. The IV septum and the anteroseptum are moderately hypokinetic.TThe rest of the LV espinoza are severely hypokinetic. Flattened septum is consistent with RV pressure/volume overload. There is no thrombus. There is n ASD,VSD , or PFO seen. Right Ventricle The right ventricle is moderately dilated. There is mild right ventricular hypertrophy. The right ventricular systolic function is mild to moderately reduced. Atria The right atrium is mild to moderately dilated. The left atrium is moderately dilated. Mitral Valve There is no evidence of mitral valve prolapse. There is no vegetation seen on the mitral valve. There is no mitral valve stenosis. There is a moderate to severe amount of mitral regurgitation. Aortic Valve There is no aortic valvular vegetation. There is no aortic valve stenosis. There is no LVOT obstruction. There is aortic sclerosis without aortic stenosis. There is a trace amount of aortic regurgitation. Tricuspid Valve There is no tricuspid stenosis. There is servere pulmonary hypertension by echo. RVSP is at least 69 mm of Hg , with RA mean of at least 20. There is a moderate to severe amount of tricuspid regurgitation. Pulmonic Valve There is no pulmonic valvular stenosis. There is no pulmonic valvular regurgitation. Great Vessels The aortic root is normal size. The inferior vena cava appeared dilated and did not change with respiration (RAP > 20 mmHg). Effusions There is no pericardial effusion. : SUDHIR ROSS Lakshmi
[2020-08-27] MEDS: ATORVASTATIN CALCIUM 40 MG TABLET PO SCH (22:56)
[2020-08-28 06:13] LABS: ABSOLUTE LYMPHOCYTES (AUTO) 0.6 10^3/uL (0.5-4.7); ABSOLUTE MONOCYTES (AUTO) 0.7 10^3/uL (0.1-1.4); ABSOLUTE NEUT (AUTO) 9.5 10^3/uL (1.7-8.2); BASOPHILS % (AUTO) 0.2 % (0-2); HEMATOCRIT 47.3 % (37.9-51.0); HEMOGLOBIN 15.7 g/dL (13.5-17.0); LYMPHOCYTES % (AUTO) 5.4 % (13-45); MEAN CORPUSCULAR HEMOGLOBIN 31.6 pg (27.0-33.4); MEAN CORPUSCULAR HGB CONC 33.2 g/dL (32.0-36.0); MEAN CORPUSCULAR VOLUME 95 fl (80-97); MONOCYTES % (AUTO) 6.7 % (3-13); PLATELET COUNT 236 10^3/uL (150-450); RED BLOOD COUNT 4.97 10^6/uL (4.35-5.55); RED CELL DISTRIBUTION WIDTH 15.2 % (11.5-14.0); SEGMENTED NEUTROPHILS % (AUTO) 87.7 % (42-78); TOTAL CELLS COUNTED % (AUTO) 100 %; WHITE BLOOD COUNT 10.8 10^3/uL (4.0-10.5)
[2020-08-28 06:37] LABS: ANION GAP 12 (5-19); BLOOD UREA NITROGEN 25 mg/dL (7-20); CALCIUM 9.2 mg/dL (8.4-10.2); CARBON DIOXIDE 23 mmol/L (22-30); CHLORIDE 100 mmol/L (98-107); GLUCOSE 142 mg/dL (75-110); POTASSIUM 4.3 mmol/L (3.6-5.0)
[2020-08-28] MEDS ORDERED: OXYCODONE-ACETAMINOPHEN 5-325 MG TABLET PO PRN (07:50)
[2020-08-28] MEDS: INSULIN REG, HUMAN 100 UNIT/ML 3 ML VIAL (PYX) SUBCUT SCH ×4 (08:37→22:04)
--- NOTE | 2020-08-28 08:59 | PDOC CONSULTATION ---
Consultation Consult Date: 08/28/20 Attending physician:: SUDHIR ROSS Provider Consulted: VALERY OLIVARES Consult reason:: HF History of Present Illness Admission Date/PCP: 08/27/20 02:48 ELPIDIO GRUBER PA-C History of Present Illness: KELSY ZHENG is a 75 year old male with a history of CAD status post PCI approximately 1 year ago, type 2 diabetes, hypertension, tobacco abuse and currently smoking and heart failure who is consulted to our service for evalu ation of heart failure exacerbation. The patient actually was brought to the emergency room after having a fall yesterday evening. It is unknown whether or not he lost consciousness but states that he was feeling very weak. Per chart review, the patient apparently stopped all of his cardiac medications approximately 3 months ago because he did not feel well while taking them. In the emergency room he reported that he was feeling progressively short of breath and developed lower extremity edema. He was found to be hypoxemic in the emergency room and with clinical signs of heart failure exacerbation and fluid overload. He had an uneventful night and his telemetry shows normal sinus rhyth m. His fluid balance is -935 mL. He actually feels much better this morning and specifically denies chest pain, shortness of breath, PND and orthopnea. Physical exam on 08/28/2020: GENERAL: Pleasant and conversational. Not in acute distress. Disheveled, mildly cachectic. HEENT: Normocephalic, atraumatic. Sclerae anicteric. Oropharynx is mildly dry. NECK: No JVD. No carotid bruits. LUNGS: Severely reduced breath sounds in all farrell bilaterally, no crackles/Rales, normal respiratory effort without the use of accessory muscles or intercostal retractions. CARDIOVASCULAR: Regular rate and rhythm, normal S1 and S2 without murmurs, rubs, or gallops. PMI not displaced. ABDOMEN: No masses or tenderness to palpation. No bruit. No splenomegaly or hepatomegaly. No abdominal aorta bruit noted. EXTREMITIES: Trace pitting edema bilaterally, no cyanosis, no clubbing. SKIN: No lesions or rashes. MUSCULOSKELETAL: No chest tenderness to palpation. NEUROLOGIC: Nonfocal. No gross sensory or motor deficits bilateral upper or lower extremities. Cardiac studies: Echocardiogram on 08/27/2020 at [facility]: -Moderate LVE. -EF 25%. -Severe hypokinesis. -Grade 1 diastolic dysfunction. -Moderate RVE with moderate RVH. -Echocardiographic evidence for RV pressure/volume overload. -Moderate to severe CLARICE. -Moderate LAE. -Severe pulmonary hypertension. -Moderate to severe MR, trace AI, moderate to severe TR. Past Medical History Pulmonary Medical History: Denies: Tuberculosis Psychiatric Medical History: Reports: Depression Past Surgical History Past Surgical History: Denies: Pacemaker Social History Lives with: Alone Smoking Status: Current Every Day Smoker Cigarettes Packs Per Day: 1 Electronic Cigarette use?: No Number of Years Smokin Last Time Smoked: 08/26/2020 Frequency of Alcohol Use: Occasional Hx Recreational Drug Use: No Drugs: None Hx Prescription Drug Abuse: No - Advance Directive Resuscitation Status: Full Code Family History Family History: Reviewed & Not Pertinent, COPD, DM Parental Family History Reviewed: Yes Children Family History Reviewed: Yes Sibling(s) Family History Reviewed.: Yes Medication/Allergy Home Medications: No Home Medications 08/27/20 Allergies/Adverse Reactions: No Known Allergies Allergy (Verified 05/06/12 06:29) Physical Exam Vital Signs: Temp Pulse Resp BP Pulse Ox 97 F L 89 18 132/96 H 100 08/28/20 07:57 08/28/20 07:49 08/28/20 07:49 08/28/20 07:49 08/28/20 07:49 Intake & Output 08/27/20 08/28/20 08/29/20 06:59 06:59 06:59 Intake Total 290 Output Total 100 1125 Balance -100 -835 Weight 66 kg 69 kg Results Laboratory Results: 08/28/20 05:17 08/28/20 05:17 08/27/20 08/27/20 08/27/20 10:06 11:24 11:24 WBC RBC Hgb Hct MCV MCH MCHC RDW Plt Count Seg Neutrophils % Sodium 133.6 L Potassium 4.2 Chloride 100 Carbon Dioxide 21 L Anion Gap 13 BUN 17 Creatinine 0.99 Est GFR ( Amer) > 60 Glucose 237 H Lactic Acid 1.9 Calcium 9.0 Magnesium Ferritin 107.00 C-Reactive Protein 43.6 H Triglycerides 62 Cholesterol 96.30 LDL Cholesterol Direct 52 VLDL Cholesterol 12.0 HDL Cholesterol 35 L TSH 08/28/20 08/28/20 08/28/20 05:17 05:17 05:17 WBC 10.8 H RBC 4.97 Hgb 15.7 Hct 47.3 MCV 95 MCH 31.6 MCHC 33.2 RDW 15.2 H Plt Count 236 Seg Neutrophils % 87.7 H Sodium 135.1 L Potassium 4.3 Chloride 100 Carbon Dioxide 23 Anion Gap 12 BUN 25 H Creatinine 1.14 Est GFR ( Amer) > 60 Glucose 142 H Lactic Acid Calcium 9.2 Magnesium 2.1 Ferritin C-Reactive Protein Triglycerides Cholesterol LDL Cholesterol Direct VLDL Cholesterol HDL Cholesterol TSH 3.75 08/27/20 08/27/20 08/27/20 01:17 06:13 13:30 Troponin I 0.044 0.027 0.030 NT-Pro-B Natriuret Pep 13518 H Impressions: Carotid Doppler Study 08/27/20 00:00 IMPRESSION: Right: 70-90% stenosis ICA. Left: No significant stenosis. Chest/Abdomen CTA 08/27/20 00:00 IMPRESSION: 1. There is no pulmonary embolus. There is no aortic aneurysm. 2. Extensive pulmonary emphysema. Minimal pleural effusions. 3. Questionable thickening of the distal esophagus. Head MRI 08/27/20 00:00 IMPRESSION: Mild chronic microvascular ischemia. Right maxillary sinus disease. No acute intracranial imaging findings. EVIDENCE OF ACUTE STROKE: NO. Venous Doppler Study 08/27/20 00:00 IMPRESSION: NO EVIDENCE DVT OR SVT IN THE RIGHT LEG. Chest X-Ray 08/27/20 01:34 IMPRESSION: Progressive airspace and pleural disease right lung base when compared to prior. Head CT 08/27/20 01:34 IMPRESSION: No acute intracranial process is identified. Assessment & Plan - Diagnosis (1) Coronary artery disease Qualifiers: Coronary Disease-Associated Artery/Lesion type: [place] artery [place] vs. transplanted heart: [place] heart Associated angina: without angina Qualified Code(s): I25.10 - Atherosclerotic heart disease of [place] coronary artery without angina pectoris Is this a current diagnosis for this admission?: Yes Plan: The patient is status post PCI to unknown vessel approximately 1 year ago. Unfortunately he does not remember any details of his coronary intervention. He has remained hemodynamically stable and free of ischemic symptoms with a detectable but indeterminate troponin. He is currently on GDMT. Recommendations: -Continue with current medical management. -Get old cardiovascular records. -We will continue to follow with you. (2) Heart failure with reduced ejection fraction Is this a current diagnosis for this admission?: Yes Plan: Likely ischemic in etiology. He was noted to have clinical signs of heart failure on exam however this morning he is much improved and with only trace lower extremity edema after achieving a negative fluid balance of 935 mL. His blood pressure is at goal however it is on the low side which will limit our ability to optimize his heart failure medications. Whether or not he is an appropriate candidate for ICD implantation remains to be seen as he appears to be noncompliant with his medications. Recommendations: -Continue diuresis with current regimen. -Continue with current medical management for now. -Consider discontinuing Cozaar and starting Entresto 24 mg / 26 mg twice daily when blood pressure improved. -Consider discontinuing Toprol and starting carvedilol 3.125 mg twice daily when blood pressure improved. -Restrict fluid intake to 1500 cc daily. -Low sodium diet, less than 1500 mg daily. -Strict intake and output. -Daily weights. -Daily BMP/magnesium and replace electrolytes as needed. (3) Pulmonary hypertension Is this a current diagnosis for this admission?: Yes Plan: The patient does have evidence of severe pulmonary hypertension on echocardiography with secondary RV dilatation. This is likely secondary to his smoking history and extensive emphysema/COPD. Recommendations: -Diuresis as above. -Encourage tobacco cessation. (4) COPD (chronic obstructive pulmonary disease) Qualifiers: COPD type: emphysema Emphysema type: unspecified Qualified Code(s): J43.9 - Emphysema, unspecified Is this a current diagnosis for this admission?: Yes Plan: Further management per hospitalist team.
[2020-08-28] MEDS: FAMOTIDINE 20 MG TABLET PO SCH ×2 (11:21→22:03)
[2020-08-28] MEDS: CLOPIDOGREL BISULFATE 75 MG TABLET PO SCH (11:21)
[2020-08-28] MEDS: ASPIRIN 81 MG TABLET, CHEWABLE PO SCH (11:21)
[2020-08-28] MEDS: CARVEDILOL 3.125 MG TABLET PO SCH ×2 (11:21→22:04)
[2020-08-28] MEDS: SACUBITRIL/VALSARTAN 24 MG/26 MG TABLET PO SCH ×2 (11:22→22:04)
[2020-08-28] MEDS: ENOXAPARIN SODIUM INJ 40 MG/0.4 ML DISP.SYRIN SUBCUT SCH (11:37)
[2020-08-28] MEDS: FUROSEMIDE INJ/PF 40 MG/4 ML SDV IV SCH ×2 (11:37→22:05)
[2020-08-28] MEDS: DEXAMETHASONE SOD PHOSPHATE INJ 4 MG/1 ML VIAL IV SCH (11:37)
--- NOTE | 2020-08-28 13:17 | PDOC PROGRESS REPORT ---
Subjective Date:: 08/28/20 Subjective:: KELSY ZHENG is a 75 year old male with a history of CAD status post PCI, type 2 diabetes, hypertension and CHF who was admitted 08/27/2020 with acute respiratory failure with hypoxia secondary to acute on chronic combined systolic/diastolic CHF. Patient was evaluated for stroke-like symptoms (slurred speech, dysphagia); fortunately all imagining are negative. Patient was seen on morning rounds. He was found resting in bed, comfortably, on supplemental oxygen by NC at 2lpm. He is A&Ox4, though somewhat forgetful. He continues to have slurred speech that is occasionally difficult to understand, but overall improved from yesterday. No facial droop or focal defic its noted today. Patient states that he is feeling much better today. He denies fever, chills, chest pain, palpitations, dyspnea, orthopnea, cough, abd pain, n/v/d. He has no other questions or concerns today. No concerns per nursing. Patient did tell me that he did not want me to talk with his daughter, "she doesn't need to know my business." Reason For Visit: FALL, COPD Physical Exam Vital Signs: Temp Pulse Resp BP Pulse Ox 97.3 F 84 18 121/91 H 98 08/28/20 11:47 08/28/20 11:47 08/28/20 11:47 08/28/20 11:47 08/28/20 11:47 Intake & Output 08/27/20 08/28/20 08/29/20 06:59 06:59 06:59 Intake Total 290 Output Total 100 1125 Balance -100 -835 Weight 66 kg 69 kg General appearance: PRESENT: no acute distress, well-developed, well-nourished Head exam: PRESENT: atraumatic, normocephalic Eye exam: PRESENT: conjunctival injection - Left eye; no drainage. Improved., conjunctiva pink, EOMI, PERRLA. ABSENT: scleral icterus Mouth exam: PRESENT: moist, tongue midline Respiratory exam: PRESENT: clear to auscultation kiara, prolonged expiratory phas, rhonchi, symmetrical, unlabored, other - supplemental oxygen by NC. ABSENT: ra les, wheezes Cardiovascular exam: PRESENT: RRR, +S1, +S2. ABSENT: diastolic murmur, rubs, systolic murmur Pulses: PRESENT: normal dorsalis pedis pul Vascular exam: PRESENT: normal capillary refill Gentrourinary exam: PRESENT: indwelling catheter Extremities exam: PRESENT: full ROM. ABSENT: calf tenderness, clubbing, pedal edema, +1 edema Neurological exam: PRESENT: alert, awake, oriented to person, oriented to place, oriented to time, oriented to situation, CN II-XII grossly intact, other - Slurred speech. Cheese Processor equal bilaterally. Plantar/dorsi felxion 4/5 bilaterally. Facial drop not present.. ABSENT: motor sensory deficit Psychiatric exam: PRESENT: appropriate affect, normal mood. ABSENT: homicidal ideation, suicidal ideation Skin exam: PRESENT: dry, intact, warm. ABSENT: cyanosis, rash Results Laboratory Results: 08/28/20 05:17 08/28/20 05:17 08/28/20 08/28/20 08/28/20 05:17 05:17 05:17 WBC 10.8 H RBC 4.97 Hgb 15.7 Hct 47.3 MCV 95 MCH 31.6 MCHC 33.2 RDW 15.2 H Plt Count 236 Seg Neutrophils % 87.7 H Sodium 135.1 L Potassium 4.3 Chloride 100 Carbon Dioxide 23 Anion Gap 12 BUN 25 H Creatinine 1.14 Est GFR ( Amer) > 60 Glucose 142 H Calcium 9.2 Magnesium 2.1 TSH 3.75 08/27/20 08/27/20 08/27/20 01:17 06:13 13:30 Troponin I 0.044 0.027 0.030 NT-Pro-B Natriuret Pep 00759 H Impressions: Carotid Doppler Study 08/27/20 00:00 IMPRESSION: Right: 70-90% stenosis ICA. Left: No significant stenosis. Chest/Abdomen CTA 08/27/20 00:00 IMPRESSION: 1. There is no pulmonary embolus. There is no aortic aneurysm. 2. Extensive pulmonary emphysema. Minimal pleural effusions. 3. Questionable thickening of the distal esophagus. Head MRI 08/27/20 00:00 IMPRESSION: Mild chronic microvascular ischemia. Right maxillary sinus disease. No acute intracranial imaging findings. EVIDENCE OF ACUTE STROKE: NO. Venous Doppler Study 08/27/20 00:00 IMPRESSION: NO EVIDENCE DVT OR SVT IN THE RIGHT LEG. Chest X-Ray 08/27/20 01:34 IMPRESSION: Progressive airspace and pleural disease right lung base when compared to prior. Head CT 08/27/20 01:34 IMPRESSION: No acute intracranial process is identified. Assessment and Plan - Diagnosis (1) Acute on chronic congestive heart failure Qualifiers: Heart failure type: combined systolic and diastolic Qualified Code(s): I50.43 - Acute on chronic combined systolic (congestive) and diastolic (congestive) heart failure Is this a current diagnosis for this admission?: Yes Plan: Likely precipitated by medication noncompliance Presents with shortness of breath, orthopnea, leg swelling Chest x-ray shows a pattern of airspace disease, cardiomegaly and some sign of pulmonary vascular congestion BNP elevated at 25,000 Echocardiogram revealed LVEF 25% with severe pulmonary hypertension. Admitted to [facility] on continuous telemetry. Oxygen and BiPAP prn Started on IV Lasix Strict I&O's, daily weight, fluid restriction Have started aspirin, statin and plavix. information technology security manager, patient educator, and transitions assistant field hockey coach. Cardiology consulted; appreciate Dr. Reich's evaluation recommendations. Per his recommendations, have discontinued Toprol and losartan. Patient is placed on carvedilol and Entresto. (2) Acute respiratory failure with hypoxia Is this a current diagnosis for this admission?: Yes Plan: Improved. Likely due to acute on chronic congestive heart failure and severe emphysema w/ exacerbation Chest x-ray shows progressive airspace pleural disease with cardiomegaly CTA chest showed severe emphysema but no evidence of pulmonary embolus, pulmonary edema, or infectious process. COVID negative Started on Lasix, strict I&O's, daily weight, fluid restriction Continue breathing treatment, steroids Continue supplemental oxygen and BiPAP prn (3) Elevated troponin Is this a current diagnosis for this admission?: Yes Plan: Currently patient denies any chest pain Has a history of CAD s/p PCI a year ago Troponin 0.044-> 0.30 EKG shows right bundle branch block Monitor on telemetry Restarted him on aspirin, Plavix, atorvastatin, metoprolol Cardiology consulted. (4) Fall Qualifiers: Encounter type: initial encounter Qualified Code(s): W19.XXXA - Unspecified fall, initial encounter Is this a current diagnosis for this admission?: Yes Plan: Likely due to physical deconditioning CT head was negative for acute findings MRI negative for CVA On fall precaution PT, OT consult has been placed (5) History of coronary artery disease Is this a current diagnosis for this admission?: Yes Plan: CAD status post PCI a year ago, now chest pain-free Cardiac enzyme and EKG for elevated troponin as stated above I requested records from [facility]. Continue aspirin, Plavix and atorvastatin (6) Hypertension Is this a current diagnosis for this admission?: Yes Plan: Antihypertensives as above. Low-sodium diet (7) Tobacco dependence Is this a current diagnosis for this admission?: Yes Plan: Currently patient smokes 1 pack a day Provided tobacco cessation counseling Nicotine patches prn (8) Type 2 diabetes mellitus Is this a current diagnosis for this admission?: Yes Plan: Hemoglobin A1C 7.3% Patient has been off of his medication for the past 3 months He is on Metformin and glipizide at home; will hold oral antidiabetic agents w/ admitted Started him on sliding scale insulin, Accu-Chek and hypoglycemia protocol On diabetic diet information technology security manager and patient educator consulted. (9) Slurred speech Is this a current diagnosis for this admission?: Yes Plan: Improved quality of speech today, although, patient states is worse than baseline. Head CT was negative for acute findings. Fortunately follow-up MRI head was negative for CVA. Did show right maxillary sinus disease. Carotid Doppler showed right ICA 70 to 90% stenosis; no significant findings to the left. Echocardiogram with LVEF 25% and severe pulmonary hypertension. Lipid panel is acceptable. A1c 7.3. Speech therapy consulted. MBS is pending. N.p.o. per their recommendations. (10) Suspected COVID-19 virus infection Is this a current diagnosis for this admission?: Yes Plan: Ruled out. Covid negative. D-dimer elevated to 3.32 Ferritin 107, LDH 255, CRP 43.6 CTA chest showed severe emphysema but no evidence of pulmonary embolus, pulmonary edema, or infectious process. (11) Elevated lactic acid level Is this a current diagnosis for this admission?: Yes Plan: Resolved. Likely due to hypoxia from heart failure Currently has no sign of sepsis (12) Swelling of left lower extremity Is this a current diagnosis for this admission?: Yes Plan: Resolved. Lower extremity Doppler negative for DVT. (13) COPD exacerbation Is this a current diagnosis for this admission?: Yes Plan: CT chest shows severe pulmonary emphysema. Presents with acute respiratory failure with hypoxia. Today noted to have rhonchi on exam. We will continue steroids, scheduled as needed nebulizer treatments, and encourage pulmonary toilet. - Time Time Spent with patient: 35 or more minutes Medications reviewed and adjusted accordingly: Yes Anticipated Discharge Disposition: Home with Home Health Anticipated Discharge Timeframe: within 72 hours
--- NOTE | 2020-08-28 13:49 | ST Inp Modified Barium Swallow ---
Medical Diagnosis - Medical Diagnoses Medical Diagnosis Description & ICD-10 Code(s): acute respiratory failure with hypoxia - ICD-10 Tx Diagnosis Coding (1) Dysphagia causing pulmonary aspiration with swallowing ICD-10 Code(s): R13.19 - OTHER DYSPHAGIA (2) Dysphagia, oropharyngeal phase ICD-10 Code(s): R13.12 - DYSPHAGIA, OROPHARYNGEAL PHASE (3) Dysphagia, pharyngeal phase ICD-10 Code(s): R13.13 - DYSPHAGIA, PHARYNGEAL PHASE (4) Dysarthria ICD-10 Code(s): R47.1 - DYSARTHRIA AND ANARTHRIA (5) Acute on chronic congestive heart failure ICD-10 Code(s): I50.9 - HEART FAILURE, UNSPECIFIED (6) Acute respiratory failure with hypoxia ICD-10 Code(s): J96.01 - ACUTE RESPIRATORY FAILURE WITH HYPOXIA (8) Fall ICD-10 Code(s): W19.XXXA - UNSPECIFIED FALL, INITIAL ENCOUNTER (9) History of coronary artery disease ICD-10 Code(s): Z86.79 - PERSONAL HISTORY OF OTHER DISEASES OF THE CIRCULATORY SYSTEM (10) Hypertension ICD-10 Code(s): I10 - ESSENTIAL (PRIMARY) HYPERTENSION (11) Slurred speech ICD-10 Code(s): R47.81 - SLURRED SPEECH (12) Swelling of left lower extremity ICD-10 Code(s): M79.89 - OTHER SPECIFIED SOFT TISSUE DISORDERS (13) Tobacco dependence ICD-10 Code(s): F17.200 - NICOTINE DEPENDENCE, UNSPECIFIED, UNCOMPLICATED ST Inpatient MBS - General Date: 08/28/20 Date of Onset: 08/27/20 - History History Obtained From: Patient - Patient reported coughing with food & liquids for "over 5 years"., Other - EMR. See above for current diagnoses. Patient admitted 08/27/2020. Reported baseline of intermittent slurred speech but now worse. CVA has been ruled out. -: Medical - Chest CT notable for extensive pulmonary emphysema, minimal pleural effusions, and questionable thickening of distal esophagus. Patient reported to have coughing and choking on nursing swallow screen on 08/27/2020., Family/Social - Per EMR, patient lives alone., ST - Evaluated this morning for Speech & Swallowing. Patient with coughing with both 1/2 ice chip and 1/2 tsp puree; ST recommended NPO and MBSS. ST evaluated communication and reported dysarthria with only 75% intelligibility at word level. Medications: Medications Reviewed Allergies: No known allergies - Subjective Current Nutritional Means: NPO Current Symptoms: Coughing Pain: 3/5 - back pain. Due to reported pain, patient remained in reclining position while waiting for MBSS & only moved into upright position as study about to start. - Objective Assessment: Upright, Left Lateral - Food Trials Food Trials Used: Thin liquids, Pureed, Soft solids The Patient: Was Able to Self Feed, fed by ST, via cup, via spoon - Assessment Labial Function: Within Functional Limits Lingual Function: Within Functional Limits Mandibular Function: Within Functional Limits - Pharyngeal Stage Initiation of Pharyngeal Stage: Normal Decreased Laryngeal Elevation: Yes Reduced Velo-Pharyngeal Closure: no Reduced Pressure Generation: Yes Reduced Tongue Base Retraction: Yes Pre-Swallowing Pooling in Valleculae: Mild Pre-Swallowing Pooling in Pyriforms: None Reduced Thyro-Hyiod Approximation: Yes Reduced Epiglottic Excursion: Yes Reduced Pharyngeal Peristalsis: Yes Multiple Swallows With: Ineffective Clearance Post Swallow Residuals in Valleculae: Significant - mild with thin liquids by spoon and increased residuals with both bolus size and increasing texture Post Swallow Residuals: Posterior pharyngeal wall, throughout pharynx - includi ng on underside of epiglottis - Esophageal Stage Cricophageal Function: Normal - Impression/Summary Laryngeal Penetration: Yes - with thin via spoon sip Tracheal Aspiration: yes - with thin via cup sip; aspiration resulted in nearly immediate severe cough with prolonged coughing that only resulted in partial airway clearance for aspirated material. It should be noted that patient selected size of cup sip and it was very large; likely nearly 1 ounce. Productive Cough: Yes Effective Clearing: no Patient Presents With: Pharyngeal stage dysph., Oral-Pharyngeal dysph., Severe Risk of Aspiration: Severe Risk of Nutritional Compromise: Severe - Recommendations Regular Diet: No Strict Aspitarion Precautions: Yes Dysphagia Therapy with CERAMIC COATER: Inpatient - recommend follow up to determine if any change in mental status that may allow patient to participate in dysphagia therapy and recommed repeat MBSS prior to discharge to determine if any improvement with improvement in respiratory status Recommended Techniques: Fully Upright During Meal, Small Bites and Sips - via spoon sip only, Alternate Bites/Sips Supervision: Constant, requires assistance - Time Total Time: 10 Total Timed Minutes: 0
--- NOTE | 2020-08-28 14:27 | RADIOLOGY REPORT (SQ) ---
EXAM DESCRIPTION: COOKIE SWALLOW IMAGES COMPLETED DATE/TIME: 08/28/2020 1:29 pm REASON FOR STUDY: dysphagia CVA COMPARISON: None. TECHNIQUE: Videofluoroscopic swallowing examination was performed in conjunction with speech patholo gy. Videofluoroscopic imaging was obtained and reviewed and these are the findings: RADIATION DOSE: 2.2 minutes of fluoroscopy was used. 2 images saved to PACS. LIMITATIONS: None FINDINGS: The patient was brought into the fluoro room and placed upright on a modified barium swall ow chair. The patient was then given multiple consistencies mixed with barium to swallow under live fluoroscopic video guidance. According to the Speech Pathologist there was laryngeal penetration and aspiration of thin liquids with large bolus. Sips of thin liquid showed only trace laryngeal penetr ation. There is poor epiglottic excursion. IMPRESSION: LARYNGEAL PENETRATION AND ASPIRATION ABOVE. PLEASE SEE SPEECH PATHOLOGIST REPORT FOR OTHER FINDINGS AND RECOMMENDATIONS. COMMENT: Quality ID [id number]: Final reports for procedures using fluoroscopy that document radiation exp osure indices, or exposure time and number of fluorographic images (if radiation exposure indices are not available) TECHNICAL DOCUMENTATION: JOB ID: [id number] 2010 [employer]- All Rights Reserved Reading location - IP/workstation name: [email or web address]
[2020-08-28] MEDS: ATORVASTATIN CALCIUM 40 MG TABLET PO SCH (22:04)
[2020-08-29 06:13] LABS: HEMATOCRIT 46.2 % (37.9-51.0); HEMOGLOBIN 15.5 g/dL (13.5-17.0); MEAN CORPUSCULAR HEMOGLOBIN 31.8 pg (27.0-33.4); MEAN CORPUSCULAR HGB CONC 33.5 g/dL (32.0-36.0); MEAN CORPUSCULAR VOLUME 95 fl (80-97); PLATELET COUNT 233 10^3/uL (150-450); RED BLOOD COUNT 4.86 10^6/uL (4.35-5.55); RED CELL DISTRIBUTION WIDTH 14.9 % (11.5-14.0)
[2020-08-29 06:29] LABS: ANION GAP 9 (5-19); BLOOD UREA NITROGEN 29 mg/dL (7-20); CALCIUM 8.8 mg/dL (8.4-10.2); CARBON DIOXIDE 29 mmol/L (22-30); CHLORIDE 98 mmol/L (98-107); GLUCOSE 162 mg/dL (75-110); POTASSIUM 3.8 mmol/L (3.6-5.0)
--- NOTE | 2020-08-29 07:34 | PDOC PROGRESS REPORT ---
Subjective Date:: 08/29/20 Subjective:: KELSY ZHENG is a 75 year old male with a history of CAD status post PCI approximately 1 year ago, type 2 diabetes, hypertension, tobacco abuse and currently smoking and heart failure who is consulted to our service for evaluation of heart failure exacerbation. The patient actually was brought to the emergency room after having a fall yesterday evening. It is unknown whether or not he lost consciousness but states that he was feeling very weak. Per chart review, the patient apparently stopped all of his cardiac medications approximately 3 months ago because he did not feel well while taking them. In the emergency room he reported that he was feeling progressively short of breath and developed lower extremity edema. He was found to be hypoxemic in the emergency room and with clinical signs of heart failure exacerbation and fluid overload. He had an uneventful night and his telemetry shows normal sinus rhythm. His fluid balance is -935 mL. He actually feels much better this morning and specifically denies chest pain, shortness of breath, PND and orthop lisy. 08/29/2020: The patient had an uneventful night and feels well this morning. He denies new cardiac complaints. Unfortunately he has been noted to be aspirating, please see speech therapist and barium swallow reports. His ARB was discontinued and he is now tolerating low-dose Entresto. His fluid balance is -3.5 L and his telemetry shows normal sinus rhythm with short bursts of ventricular tachycardia. Physical exam on 08/29/2020: GENERAL: Pleasant and conversational. Not in acute distress. Disheveled, mildly cachectic. HEENT: Normocephalic, atraumatic. Sclerae anicteric. Oropharynx is mildly dry. NECK: No JVD. No carotid bruits. LUNGS: Severely reduced breath sounds in all farrell bilaterally, no crackles/Rales, normal respiratory effort without the use of accessory muscles or intercostal retractions. CARDIOVASCULAR: Regular rate and rhythm, normal S1 and S2 without murmurs, rubs, or gallops. PMI not displaced. ABDOMEN: No masses or tenderness to palpation. No bruit. No splenomegaly or hepatomegaly. No abdominal aorta bruit noted. EXTREMITIES: Trace pitting edema bilaterally, no cyanosis, no clubbing. SKIN: No lesions or rashes. MUSCULOSKELETAL: No chest tenderness to palpation. NEUROLOGIC: Nonfocal. No gross sensory or motor deficits bilateral upper or l ower extremities. Cardiac studies: Echocardiogram on 08/27/2020 at [facility]: -Moderate LVE. -EF 25%. -Severe hypokinesis. -Grade 1 diastolic dysfunction. -Moderate RVE with moderate RVH. -Echocardiographic evidence for RV pressure/volume overload. -Moderate to severe CLARICE. -Moderate LAE. -Severe pulmonary hypertension. -Moderate to severe MR, trace AI, moderate to severe TR. Reason For Visit: FALL, COPD Physical Exam Vital Signs: Temp Pulse Resp BP Pulse Ox 97.6 F 69 20 117/69 96 08/28/20 23:33 08/29/20 02:00 08/28/20 23:33 08/28/20 23:33 08/29/20 01:18 Intake & Output 08/27/20 08/28/20 08/29/20 06:59 06:59 06:59 Intake Total 290 240 Output Total 100 1125 2810 Balance -100 -517 -2570 Weight 66 kg 69 kg 66.3 kg Results Laboratory Results: 08/29/20 05:25 08/28/20 08/28/20 08/29/20 05:17 05:17 05:25 WBC 14.0 H RBC 4.86 Hgb 15.5 Hct 46.2 MCV 95 MCH 31.8 MCHC 33.5 RDW 14.9 H Plt Count 233 Sodium 135.1 L Potassium 4.3 Chloride 100 Carbon Dioxide 23 Anion Gap 12 BUN 25 H Creatinine 1.14 Est GFR ( Amer) > 60 Glucose 142 H Calcium 9.2 Magnesium 2.1 TSH 3.75 08/27/20 08/27/20 08/27/20 01:17 06:13 13:30 Troponin I 0.044 0.027 0.030 NT-Pro-B Natriuret Pep [id number] H Impressions: Carotid Doppler Study 08/27/20 00:00 IMPRESSION: Right: 70-90% stenosis ICA. Left: No significant stenosis. Chest/Abdomen CTA 08/27/20 00:00 IMPRESSION: 1. There is no pulmonary embolus. There is no aortic aneurysm. 2. Extensive pulmonary emphysema. Minimal pleural effusions. 3. Questionable thickening of the distal esophagus. Head MRI 08/27/20 00:00 IMPRESSION: Mild chronic microvascular ischemia. Right maxillary sinus disease. No acute intracranial imaging findings. EVIDENCE OF ACUTE STROKE: NO. Venous Doppler Study 08/27/20 00:00 IMPRESSION: NO EVIDENCE DVT OR SVT IN THE RIGHT LEG. Chest X-Ray 08/27/20 01:34 IMPRESSION: Progressive airspace and pleural disease right lung base when compared to prior. Head CT 08/27/20 01:34 IMPRESSION: No acute intracranial process is identified. Modified Barium Swallow 08/28/20 00:00 IMPRESSION: LARYNGEAL PENETRATION AND ASPIRATION ABOVE. PLEASE SEE SPEECH PATHOLOGIST REPORT FOR OTHER FINDINGS AND RECOMMENDATIONS. 08/29/20 05:25 08/29/20 05:25 MCV 95 fl (80-97) 08/29/20 05:25 MCH 31.8 pg (27.0-33.4) 08/29/20 05:25 MCHC 33.5 g/dL (32.0-36.0) 08/29/20 05:25 RDW 14.9 % (11.5-14.0) H 08/29/20 05:25 Seg Neutrophils % 87.7 % (42-78) H 08/28/20 05:17 Carbonic Acid 1.23 mmol/L (1.05-1.35) 08/27/20 01:57 HCO3/H2CO3 Ratio 20:1 08/27/20 01:57 ABG pH 7.40 (7.35-7.45) 08/27/20 01:57 ABG pCO2 41.0 mmHg (35-45) 08/27/20 01:57 ABG pO2 57.4 mmHg (80-100) L 08/27/20 01:57 ABG HCO3 24.9 mmol/L (20-24) H 08/27/20 01:57 ABG O2 Saturation 90.0 % (94-98) L 08/27/20 01:57 ABG Base Excess 0.2 mmol/L 08/27/20 01:57 FiO2 15L 08/27/20 01:57 Chloride 98 mmol/L (98-107) 08/29/20 05:25 Carbon Dioxide 29 mmol/L (22-30) 08/29/20 05:25 Anion Gap 9 (5-19) 08/29/20 05:25 Est GFR ( Amer) > 60 (>60) 08/29/20 05:25 Glucose 162 mg/dL (75-110) H 08/29/20 05:25 Lactic Acid 1.9 mmol/L (0.7-2.1) 08/27/20 10:06 Calcium 8.8 mg/dL (8.4-10.2) 08/29/20 05:25 Magnesium 2.1 mg/dL (1.6-2.3) 08/28/20 05:17 Ferritin 107.00 ng/mL (17.9-464.0) 08/27/20 11:24 Total Bilirubin 1.8 mg/dL (0.2-1.3) H 08/27/20 01:17 AST 37 U/L (17-59) 08/27/20 01:17 Alkaline Phosphatase 169 U/L (38-126) H 08/27/20 01:17 C-Reactive Protein 43.6 mg/L (<10.0) H 08/27/20 11:24 Total Protein 8.3 g/dL (6.3-8.2) H 08/27/20 01:17 Albumin 4.4 g/dL (3.5-5.0) 08/27/20 01:17 Triglycerides 62 mg/dL (<150) 08/27/20 11:24 Cholesterol 96.30 mg/dL (0-200) 08/27/20 11:24 LDL Cholesterol Direct 52 mg/dL (<100) 08/27/20 11:24 VLDL Cholesterol 12.0 mg/dL (10-31) 08/27/20 11:24 HDL Cholesterol 35 mg/dL (>40) L 08/27/20 11:24 TSH 3.75 uIU/mL (0.47-4.68) 08/28/20 05:17 Urine Color JSOE 08/27/20 02:43 Urine Appearance SLIGHTLY-CLOUDY 08/27/20 02:43 Urine pH 5.0 (5.0-9.0) 08/27/20 02:43 Ur Specific [place] 1.021 08/27/20 02:43 Urine Protein 100 mg/dL (NEGATIVE) H 08/27/20 02:43 Urine Glucose (UA) NEGATIVE mg/dL (NEGATIVE) 08/27/20 02:43 Urine Ketones TRACE mg/dL (NEGATIVE) H 08/27/20 02:43 Urine Blood NEGATIVE (NEGATIVE) 08/27/20 02:43 Urine Nitrite NEGATIVE (NEGATIVE) 08/27/20 02:43 Ur Leukocyte Esterase NEGATIVE (NEGATIVE) 08/27/20 02:43 Urine WBC (Auto) 1 /HPF 08/27/20 02:43 Urine RBC (Auto) 0 /HPF 08/27/20 02:43 08/27/20 08/27/20 08/27/20 01:17 06:13 13:30 Troponin I 0.044 0.027 0.030 NT-Pro-B Natriuret Pep [id number] H Current Medication List Generic Name Dose Route Start Last Admin Trade Name Freq PRN Reason Stop Dose Admin Acetaminophen 650 mg 08/27/20 03:09 Acetaminophen 325 Mg Tablet PO 09/26/20 03:08 Q4HP PRN FEVER >101 Albuterol/Ipratropium 3 ml 08/27/20 03:09 Ipratropium/Albuterol 0.5-2.5 Mg/3 Ml Ampul NEB 09/26/20 03:08 RTQ6HP PRN SHORTNESS OF BREATH Aspirin 81 mg 08/27/20 10:00 08/28/20 11:21 Aspirin 81 Mg Tablet, Chewable PO 09/26/20 09:59 Not Given DAILY SHANTA Atorvastatin Calcium 80 mg 08/27/20 22:00 08/28/20 22:04 Atorvastatin Calcium 40 Mg Tablet PO 09/26/20 21:59 80 mg QHS SHANTA Administration Carvedilol 3.125 mg 08/28/20 10:00 08/28/20 22:04 Carvedilol 3.125 Mg Tablet PO 09/27/20 09:59 3.125 mg Q12 SHANTA Administration Clopidogrel Bisulfate 75 mg 08/27/20 10:00 08/28/20 11:21 Clopidogrel Bisulfate 75 Mg Tablet PO 09/26/20 09:59 Not Given DAILY SHANTA Dexamethasone Sodium Phosphate 6 mg 08/27/20 16:00 08/28/20 11:37 Dexamethasone Sod Phosphate Inj 4 Mg/1 Ml Vial IV 09/26/20 15:59 6 mg DAILY SHANTA Administration Dextrose 12.5 gm 08/27/20 03:39 Dextrose 50%-Water 25 Gm/50 Ml Disp.Syrin IV 09/26/20 03:38 PRN PRN FOR BG 50-69 IN ALERT PATIENT Protocol Dextrose 25 gm 08/27/20 03:39 Dextrose 50%-Water 25 Gm/50 Ml Disp.Syrin IV 09/26/20 03:38 PRN PRN PER PROTOCOL Protocol Enoxaparin Sodium 40 mg 08/27/20 10:00 08/28/20 11:37 Enoxaparin Sodium Inj 40 Mg/0.4 Ml Disp.Syrin SUBCUT 09/26/20 09:59 40 mg DAILY SHANTA Administration Famotidine 20 mg 08/27/20 10:00 08/28/20 22:03 Famotidine 20 Mg Tablet PO 09/26/20 09:59 20 mg Q12 SHANTA Administration Furosemide 40 mg 08/27/20 10:00 08/28/20 22:05 Furosemide Inj/Pf 40 Mg/4 Ml Sdv IV 09/26/20 09:59 40 mg Q12 SHANTA Administration Glucagon 1 mg 08/27/20 03:39 Glucagon,Human Recomb 1 Mg Inj IM 09/26/20 03:38 PRN PRN Evaluate for BG < 70 Protocol Glucose 15 gm 08/27/20 03:39 Dextrose 40% Gel 15 Gm Tube PO 09/26/20 03:38 PRN PRN FOR BG 50-69 IN ALERT PATIENT Protocol Glucose 30 gm 08/27/20 03:39 Dextrose 40% Gel 15 Gm Tube PO 09/26/20 03:38 PRN PRN FOR BG < 50 IN ALERT PATIENT Protocol Insulin Human Regular 0 - 12 unit 08/27/20 08:00 08/28/20 22:04 Insulin Reg, Human 100 Unit/Ml 3 Ml Vial (Pyx) SUBCUT 09/26/20 07:59 2 unit ACHS SHANTA Administration Protocol Nicotine 1 each 08/27/20 15:20 Nicotine 21 Mg/24 Hr Patch.Td24 TD 09/26/20 15:19 DAILYP PRN WITHDRAWAL SYMPTOMS Sacubitril/Valsartan 1 tab 08/28/20 11:00 08/28/20 22:04 Sacubitril/Valsartan 24 Mg/26 Mg Tablet PO 09/27/20 10:59 1 tab Q12 SHANTA Administration Discontinued Medications Generic Name Dose Route Start Last Admin Trade Name Freq PRN Reason Stop Dose Admin Atorvastatin Calcium 40 mg 08/27/20 22:00 Atorvastatin Calcium 40 Mg Tablet PO 09/26/20 21:59 QHS SHANTA Azithromycin 500 mg 08/27/20 02:22 08/27/20 03:12 Azithromycin Inj 500 Mg Vial IV 08/27/20 02:23 500 mg IVBAG (ED) ONE Administration Bumetanide 1 mg 08/27/20 02:22 08/27/20 03:13 Bumetanide Inj/Pf 1 Mg/4 Ml Sdv IV 08/27/20 02:23 1 mg NOW ONE Administration Dexamethasone Sodium Phosphate 10 mg 08/27/20 02:23 08/27/20 03:12 Dexamethasone Sod Phos Inj 10 Mg/1 Ml Vial IV 08/27/20 02:24 10 mg NOW ONE Administration Famotidine 20 mg 08/27/20 02:22 08/27/20 03:12 Famotidine Inj/Pf 20 Mg/2 Ml Sdv IV 08/27/20 02:23 20 mg NOW ONE Administration Losartan Potassium 12.5 mg 08/27/20 10:00 08/27/20 09:12 Losartan Potassium 25 Mg Tablet PO 09/26/20 09:59 12.5 mg DAILY SHANTA Administration Metoprolol Succinate 12.5 mg 08/27/20 10:00 08/27/20 09:11 Metoprolol Succinate 25 Mg Tab.Sr.24h PO 09/26/20 09:59 12.5 mg DAILY SHANTA Administration Oxycodone/Acetaminophen 1 tab 08/27/20 03:09 08/27/20 18:07 Oxycodone-Acetaminophen 5-325 Mg Tablet PO 09/03/20 03:08 1 tab Q6HP PRN Administration FOR PAIN SCALE 3-5 Oxycodone/Acetaminophen 1 tab 08/28/20 07:50 Oxycodone-Acetaminophen 5-325 Mg Tablet PO 09/04/20 07:46 Q8HP PRN FOR PAIN SCALE 3-5 Assessment & Plan - Diagnosis (1) Coronary artery disease Qualifiers: Coronary Disease-Associated Artery/Lesion type: [place] artery [place] vs. transplanted heart: [place] heart Associated angina: without angina Qualified Code(s): I25.10 - Atherosclerotic heart disease of [place] coronary artery without angina pectoris Is this a current diagnosis for this admission?: Yes Plan: The patient is status post PCI to unknown vessel approximately 1 year ago. Unfortunately he does not remember any details of his coronary intervention. He has remained hemodynamically stable and free of ischemic symptoms with a detecta ble but indeterminate troponin. He is currently on GDMT. Recommendations: -Continue with current medical management. -Get old cardiovascular records. -We will continue to follow with you. (2) Heart failure with reduced ejection fraction Is this a current diagnosis for this admission?: Yes Plan: Likely ischemic in etiology. He has responded very well to diuresis and is currently negative 3.5 L in his net fluid balance since admission. He is asymptomatic this morning. Unfortunately, he is now experiencing very short episodes of nonsustained VT however whether or not he is an appropriate candidate for ICD implantation remains to be seen as he appears to be noncompliant with his medications and he appears to have a mild degree of dementia. Recommendations: -Discontinue IV Lasix and start p.o. Lasix 40 mg twice daily. -Continue with current medical management. -BMP and chest x-ray on 08/30/2020. -Restrict fluid intake to 1500 cc daily. -Low sodium diet, less than 1500 mg daily. -Strict intake and output. -Daily weights. -Daily BMP/magnesium and replace electrolytes as needed. (3) Pulmonary hypertension Is this a current diagnosis for this admission?: Yes Plan: The patient does have evidence of severe pulmonary hypertension on echocardiography with secondary RV dilatation. This is likely secondary to his smoking history and extensive emphysema/COPD. Recommendations: -Encourage tobacco cessation. (4) COPD (chronic obstructive pulmonary disease) Qualifiers: COPD type: emphysema Emphysema type: unspecified Qualified Code(s): J43.9 - Emphysema, unspecified Is this a current diagnosis for this admission?: Yes Plan: Further management per hospitalist team.
[2020-08-29] MEDS: INSULIN REG, HUMAN 100 UNIT/ML 3 ML VIAL (PYX) SUBCUT SCH ×4 (09:06→21:17)
[2020-08-29] MEDS: CLOPIDOGREL BISULFATE 75 MG TABLET PO SCH (10:37)
[2020-08-29] MEDS: FAMOTIDINE 20 MG TABLET PO SCH ×2 (10:38→21:15)
[2020-08-29] MEDS: ASPIRIN 81 MG TABLET, CHEWABLE PO SCH (10:38)
[2020-08-29] MEDS: SACUBITRIL/VALSARTAN 24 MG/26 MG TABLET PO SCH ×2 (10:41→21:30)
[2020-08-29] MEDS: CARVEDILOL 3.125 MG TABLET PO SCH ×2 (10:43→21:15)
[2020-08-29] MEDS: FUROSEMIDE INJ/PF 40 MG/4 ML SDV IV SCH ×2 (10:52→21:16)
[2020-08-29] MEDS: ENOXAPARIN SODIUM INJ 40 MG/0.4 ML DISP.SYRIN SUBCUT SCH (10:52)
[2020-08-29] MEDS: DEXAMETHASONE SOD PHOSPHATE INJ 4 MG/1 ML VIAL IV SCH (13:22)
--- NOTE | 2020-08-29 18:18 | PDOC PROGRESS REPORT ---
Subjective Date:: 08/29/20 Subjective:: Patient seen on morning rounds. He is resting in bed on 6L NC with O2 sats >95%. He does not have O2 at home. Confirms that he smokes approximately 1 ppd. Confirms history of medication non-compliance. Confirms weakness though states this is improved. Significant improvement in slurred speech. Continues to deny facial droop or focal deficits, chest pain, palpitations, SOB, orthopnea, cough, abd pain NVD. No concerns per nursing. Reason For Visit: FALL, COPD Physical Exam Vital Signs: Temp Pulse Resp BP Pulse Ox 97.6 F 79 19 136/84 H 96 08/29/20 15:59 08/29/20 15:59 08/29/20 16:47 08/29/20 15:59 08/29/20 16:47 Intake & Output 08/28/20 08/29/20 08/30/20 06:59 06:59 06:59 Intake Total 290 240 240 Output Total 1125 2810 Balance -835 -2570 240 Weight 69 kg 66.3 kg Additional comments: General appearance: PRESENT: no acute distress, well-developed, well-nourished Head exam: PRESENT: atraumatic, normocephalic Eye exam: PRESENT: Left eye with conjunctival injection but without drainage. conjunctiva pink, EOMI, PERRLA. ABSENT: scleral icterus Mouth exam: PRESENT: moist, tongue midline Respiratory exam: PRESENT: clear to auscultation kiara, prolonged expiratory phas, rhonchi, symmetrical, unlabored, other - supplemental oxygen by NC. ABSENT: rales, wheezes Cardiovascular exam: PRESENT: RRR, +S1, +S2. ABSENT: diastolic murmur, rubs, systolic murmur Pulses: PRESENT: normal dorsalis pedis pul Vascular exam: PRESENT: normal capillary refill Gentrourinary exam: PRESENT: indwelling catheter Extremities exam: PRESENT: full ROM. ABSENT: calf tenderness, clubbing, pedal edema, +1 edema Neurological exam: PRESENT: alert, awake, oriented to person, oriented to place, oriented to time, oriented to situation, CN II-XII grossly intact, other - Slurred speech this is occasional and minimal. ABSENT: motor sensory deficit Psychiatric exam: PRESENT: appropriate affect, normal mood. ABSENT: homicidal ideation, suicidal ideation Skin exam: PRESENT: dry, intact, warm. ABSENT: cyanosis, rash Results Laboratory Results: 08/29/20 05:25 08/29/20 05:25 08/29/20 08/29/20 05:25 05:25 WBC 14.0 H RBC 4.86 Hgb 15.5 Hct 46.2 MCV 95 MCH 31.8 MCHC 33.5 RDW 14.9 H Plt Count 233 Sodium 136.2 L Potassium 3.8 Chloride 98 Carbon Dioxide 29 Anion Gap 9 BUN 29 H Creatinine 1.08 Est GFR ( Amer) > 60 Glucose 162 H Calcium 8.8 08/27/20 08/27/20 08/27/20 01:17 06:13 13:30 Troponin I 0.044 0.027 0.030 NT-Pro-B Natriuret Pep [id number] H Impressions: Carotid Doppler Study 08/27/20 00:00 IMPRESSION: Right: 70-90% stenosis ICA. Left: No significant stenosis. Chest/Abdomen CTA 08/27/20 00:00 IMPRESSION: 1. There is no pulmonary embolus. There is no aortic aneurysm. 2. Extensive pulmonary emphysema. Minimal pleural effusions. 3. Questionable thickening of the distal esophagus. Head MRI 08/27/20 00:00 IMPRESSION: Mild chronic microvascular ischemia. Right maxillary sinus disease. No acute intracranial imaging findings. EVIDENCE OF ACUTE STROKE: NO. Venous Doppler Study 08/27/20 00:00 IMPRESSION: NO EVIDENCE DVT OR SVT IN THE RIGHT LEG. Chest X-Ray 08/27/20 01:34 IMPRESSION: Progressive airspace and pleural disease right lung base when compared to prior. Head CT 08/27/20 01:34 IMPRESSION: No acute intracranial process is identified. Modified Barium Swallow 08/28/20 00:00 IMPRESSION: LARYNGEAL PENETRATION AND ASPIRATION ABOVE. PLEASE SEE SPEECH PATHOLOGIST REPORT FOR OTHER FINDINGS AND RECOMMENDATIONS. Assessment and Plan - Diagnosis (1) Acute on chronic congestive heart failure Qualifiers: Heart failure type: combined systolic and diastolic Qualified Code(s): I50.43 - Acute on chronic combined systolic (congestive) and diastolic (congestive) heart failure Is this a current diagnosis for this admission?: Yes Plan: Admits to medication noncompliance Presenting sxs include: shortness of breath, orthopnea, leg swelling Chest x-ray shows a pattern of airspace disease, cardiomegaly and some sign of pulmonary vascular congestion BNP elevated at 25,000 Echocardiogram revealed LVEF 25% with severe pulmonary hypertension. - Continuous telemetry. - Oxygen and BiPAP prn - Requiring ~6L consistently. - Continue on IV Lasix - Strict I&O's, daily weight, fluid restriction - Continue aspirin, statin and plavix. php consultant, patient educator, and transitions customer care team coach. Cardiology consulted; appreciate Dr. Reich's evaluation recommendations. - Discontinued Toprol and losartan. - Patient is placed on carvedilol and Entresto. (2) Acute respiratory failure with hypoxia Is this a current diagnosis for this admission?: Yes Plan: Improved. Likely due to acute on chronic congestive heart failure and severe emphysema w/ exacerbation Chest x-ray shows progressive airspace pleural disease with cardiomegaly CTA chest showed severe emphysema but no evidence of pulmonary embolus, pulmonary edema, or infectious process. COVID negative Started on Lasix, strict I&O's, daily weight, fluid restriction Continue breathing treatment, steroids - Steroids likely cause of leukocytosis Continue supplemental oxygen and BiPAP prn (3) Elevated troponin Is this a current diagnosis for this admission?: Yes Plan: Currently patient denies any chest pain - Has a history of CAD s/p PCI a year ago - Troponin 0.044-> 0.30 - EKG shows right bundle branch block Monitor on telemetry Continue aspirin, Plavix, atorvastatin, metoprolol Cardiology onboard. (4) Fall Qualifiers: Encounter type: initial encounter Qualified Code(s): W19.XXXA - Unspecified fall, initial encounter Is this a current diagnosis for this admission?: Yes Plan: Likely due to physical deconditioning - CT head was negative for acute findings - MRI negative for CVA On fall precaution PT recommends skilled PT services. Will plan for dc to SNF. (5) History of coronary artery disease Is this a current diagnosis for this admission?: Yes Plan: CAD status post PCI a year ago, now chest pain-free Cardiac enzyme and EKG for elevated troponin as stated above - Requested records from [facility], pending Continue aspirin, Plavix and atorvastatin (6) Hypertension Is this a current diagnosis for this admission?: Yes Plan: Antihypertensives as above. Low-sodium diet (7) Tobacco dependence Is this a current diagnosis for this admission?: Yes Plan: Currently patient smokes 1 pack a day Provided tobacco cessation counseling Nicotine patches prn (8) Type 2 diabetes mellitus Qualifiers: Diabetes mellitus care home insulin use: without care home use Diabetes mellitus complication status: without complication Qualified Code(s): E11.9 - Type 2 diabetes mellitus without complications Is this a current diagnosis for this admission?: Yes Plan: Hemoglobin A1C 7.3% Admits to non-compliance x3 months. He is on Metformin and glipizide at home; continue to hold oral antidiabetic agents w/ admitted Started him on sliding scale insulin, Accu-Chek and hypoglycemia protocol On diabetic diet php consultant and patient educator consulted. (9) Slurred speech Is this a current diagnosis for this admission?: Yes Plan: Improved quality of speech today, although, patient states is worse than baseline. Head CT was negative for acute findings. Fortunately follow-up MRI head was negative for CVA. Did show right maxillary sinus disease. Carotid Doppler showed right ICA 70 to 90% stenosis; no significant findings to the left. Echocardiogram with LVEF 25% and severe pulmonary hypertension. Lipid panel is acceptable. A1c 7.3. Speech therapy consulted, see note. - Severe risk aspiration - Strict aspiration precautions - Spoon fed - Moderate dysphagia (10) Suspected COVID-19 virus infection Is this a current diagnosis for this admission?: Yes Plan: Ruled out. - Covid negative. - D-dimer elevated to 3.32 - Ferritin 107, LDH 255, CRP 43. - CTA chest showed severe emphysema but no evidence of pulmonary embolus, pulmonary edema, or infectious process. (11) Elevated lactic acid level Is this a current diagnosis for this admission?: Yes Plan: Resolved. Likely due to hypoxia from heart failure Currently has no sign of sepsis (12) Swelling of left lower extremity Is this a current diagnosis for this admission?: Yes Plan: Resolved. Lower extremity Doppler negative for DVT. (13) COPD exacerbation Is this a current diagnosis for this admission?: Yes Plan: CT chest shows severe pulmonary emphysema. Presents with acute respiratory failure with hypoxia. Today noted to have rhonchi on exam. We will continue steroids, scheduled as needed nebulizer treatments, and encourage pulmonary toilet. (14) Leukocytosis Is this a current diagnosis for this admission?: Yes Plan: Neutrophilic leukocytosis 10.6 -> 14.0 Bump in WBC likely secondary to steroids (15) Dysphagia Qualifiers: Dysphagia type: unspecified Qualified Code(s): R13.10 - Dysphagia, unspecified Is this a current diagnosis for this admission?: Yes Plan: As per speech evaluation pt with moderate dysphagia and high risk aspiration - Dietary changes as per recommendations - Time Time Spent with patient: 25-34 minutes Medications reviewed and adjusted accordingly: Yes Anticipated Discharge Disposition: Home with Home Health Anticipated Discharge Timeframe: within 48 hours
[2020-08-29] MEDS: ATORVASTATIN CALCIUM 40 MG TABLET PO SCH (21:15)
[2020-08-30 06:35] LABS: HEMATOCRIT 47.4 % (37.9-51.0); HEMOGLOBIN 15.9 g/dL (13.5-17.0); MEAN CORPUSCULAR HEMOGLOBIN 31.7 pg (27.0-33.4); MEAN CORPUSCULAR HGB CONC 33.6 g/dL (32.0-36.0); MEAN CORPUSCULAR VOLUME 94 fl (80-97); PLATELET COUNT 229 10^3/uL (150-450); RED BLOOD COUNT 5.02 10^6/uL (4.35-5.55); WHITE BLOOD COUNT 10.6 10^3/uL (4.0-10.5)
[2020-08-30 07:04] LABS: ANION GAP 9 (5-19); BLOOD UREA NITROGEN 28 mg/dL (7-20); CARBON DIOXIDE 30 mmol/L (22-30); CHLORIDE 100 mmol/L (98-107); GLUCOSE 161 mg/dL (75-110); POTASSIUM 3.8 mmol/L (3.6-5.0)
--- NOTE | 2020-08-30 07:40 | PDOC PROGRESS REPORT ---
Subjective Date:: 08/30/20 Subjective:: KELSY ZHENG is a 75 year old male with a history of CAD status post PCI approximately 1 year ago, type 2 diabetes, hypertension, tobacco abuse and currently smoking and heart failure who is consulted to our service for evaluation of heart failure exacerbation. The patient actually was brought to the emergency room after having a fall yesterday evening. It is unknown whether or not he lost consciousness but states that he was feeling very weak. Per chart review, the patient apparently stopped all of his cardiac medications approximately 3 months ago because he did not feel well while taking them. In the emergency room he reported that he was feeling progressively short of breath and developed lower extremity edema. He was found to be hypoxemic in the emergency room and with clinical signs of heart failure exacerbation and fluid overload. He had an uneventful night and his telemetry shows normal sinus rhythm. His fluid balance is -935 mL. He actually feels much better this morning and specifically denies chest pain, shortness of breath, PND and orthop lisy. 08/30/2020: The patient had an uneventful night and feels well this morning. He denies new cardiac complaints. Unfortunately he has been noted to be aspirating, please see speech therapist and barium swallow reports. He is now tolerating low-dose Entresto and low-dose carvedilol. His fluid balance is -4.7 L which resulted in a decrease in his BNP of 35%. His telemetry shows normal sinus rhythm with one short burst of SVT and no more recurrence of ventricular tachycardia. He is hungry this morning and has, again, no cardiac complaints. Physical exam on 08/30/2020: GENERAL: Pleasant and conversational. Not in acute distress. Disheveled, mildly cachectic. HEENT: Normocephalic, atraumatic. Sclerae anicteric. Oropharynx is mildly dry. NECK: No JVD. No carotid bruits. LUNGS: Severely reduced breath sounds in all farrell bilaterally, no crackles/rales, normal respiratory effort without the use of accessory muscles or intercostal retractions. CARDIOVASCULAR: Regular rate and rhythm, normal S1 and S2 without murmurs, rubs, or gallops. PMI not displaced. ABDOMEN: No masses or tenderness to palpation. No bruit. No splenomegaly or hepatomegaly. No abdominal aorta bruit noted. EXTREMITIES: Trace pitting edema bilaterally, no cyanosis, no clubbing. SKIN: No lesions or rashes. MUSCULOSKELETAL: No chest tenderness to palpation. NEUROLOGIC: Nonfocal. No gross sensory or motor deficits bilateral upper or lower extremities. Cardiac studies: Echocardiogram on 08/27/2020 at [facility]: -Moderate LVE. -EF 25%. -Severe hypokinesis. -Grade 1 diastolic dysfunction. -Moderate RVE with moderate RVH. -Echocardiographic evidence for RV pressure/volume overload. -Moderate to severe CLARICE. -Moderate LAE. -Severe pulmonary hypertension. -Moderate to severe MR, trace AI, moderate to severe TR. Reason For Visit: FALL, COPD Physical Exam Vital Signs: Temp Pulse Resp BP Pulse Ox 97.6 F 71 18 117/72 95 08/29/20 23:50 08/30/20 02:00 08/29/20 23:50 08/29/20 23:50 08/29/20 23:50 Intake & Output 08/29/20 08/30/20 08/31/20 06:59 06:59 06:59 Intake Total 240 626 Output Total 2810 1875 Balance -2570 -1249 Weight 66.3 kg 63.1 kg Results Laboratory Results: 08/30/20 05:41 08/30/20 05:41 08/30/20 08/30/20 05:41 05:41 WBC 10.6 H RBC 5.02 Hgb 15.9 Hct 47.4 MCV 94 MCH 31.7 MCHC 33.6 RDW 15.0 H Plt Count 229 Sodium 138.5 Potassium 3.8 Chloride 100 Carbon Dioxide 30 Anion Gap 9 BUN 28 H Creatinine 0.96 Est GFR ( Amer) > 60 Glucose 161 H Calcium 8.0 L 08/27/20 08/27/20 08/27/20 01:17 06:13 13:30 Troponin I 0.044 0.027 0.030 NT-Pro-B Natriuret Pep 54680 H 08/30/20 05:41 Troponin I NT-Pro-B Natriuret Pep 21394 H Impressions: Carotid Doppler Study 08/27/20 00:00 IMPRESSION: Right: 70-90% stenosis ICA. Left: No significant stenosis. Chest/Abdomen CTA 08/27/20 00:00 IMPRESSION: 1. There is no pulmonary embolus. There is no aortic aneurysm. 2. Extensive pulmonary emphysema. Minimal pleural effusions. 3. Questionable thickening of the distal esophagus. Head MRI 08/27/20 00:00 IMPRESSION: Mild chronic microvascular ischemia. Right maxillary sinus disea se. No acute intracranial imaging findings. EVIDENCE OF ACUTE STROKE: NO. Venous Doppler Study 08/27/20 00:00 IMPRESSION: NO EVIDENCE DVT OR SVT IN THE RIGHT LEG. Chest X-Ray 08/27/20 01:34 IMPRESSION: Progressive airspace and pleural disease right lung base when compared to prior. Head CT 08/27/20 01:34 IMPRESSION: No acute intracranial process is identified. Modified Barium Swallow 08/28/20 00:00 IMPRESSION: LARYNGEAL PENETRATION AND ASPIRATION ABOVE. PLEASE SEE SPEECH PATHOLOGIST REPORT FOR OTHER FINDINGS AND RECOMMENDATIONS. 08/30/20 05:41 08/30/20 05:41 MCV 94 fl (80-97) 08/30/20 05:41 MCH 31.7 pg (27.0-33.4) 08/30/20 05:41 MCHC 33.6 g/dL (32.0-36.0) 08/30/20 05:41 RDW 15.0 % (11.5-14.0) H 08/30/20 05:41 Seg Neutrophils % 87.7 % (42-78) H 08/28/20 05:17 Carbonic Acid 1.23 mmol/L (1.05-1.35) 08/27/20 01:57 HCO3/H2CO3 Ratio 20:1 08/27/20 01:57 ABG pH 7.40 (7.35-7.45) 08/27/20 01:57 ABG pCO2 41.0 mmHg (35-45) 08/27/20 01:57 ABG pO2 57.4 mmHg (80-100) L 08/27/20 01:57 ABG HCO3 24.9 mmol/L (20-24) H 08/27/20 01:57 ABG O2 Saturation 90.0 % (94-98) L 08/27/20 01:57 ABG Base Excess 0.2 mmol/L 08/27/20 01:57 FiO2 15L 08/27/20 01:57 Chloride 100 mmol/L (98-107) 08/30/20 05:41 Carbon Dioxide 30 mmol/L (22-30) 08/30/20 05:41 Anion Gap 9 (5-19) 08/30/20 05:41 Est GFR ( Amer) > 60 (>60) 08/30/20 05:41 Glucose 161 mg/dL (75-110) H 08/30/20 05:41 Lactic Acid 1.9 mmol/L (0.7-2.1) 08/27/20 10:06 Calcium 8.0 mg/dL (8.4-10.2) L 08/30/20 05:41 Magnesium 2.1 mg/dL (1.6-2.3) 08/28/20 05:17 Ferritin 107.00 ng/mL (17.9-464.0) 08/27/20 11:24 Total Bilirubin 1.8 mg/dL (0.2-1.3) H 08/27/20 01:17 AST 37 U/L (17-59) 08/27/20 01:17 Alkaline Phosphatase 169 U/L (38-126) H 08/27/20 01:17 C-Reactive Protein 43.6 mg/L (<10.0) H 08/27/20 11:24 Total Protein 8.3 g/dL (6.3-8.2) H 08/27/20 01:17 Albumin 4.4 g/dL (3.5-5.0) 08/27/20 01:17 Triglycerides 62 mg/dL (<150) 08/27/20 11:24 Cholesterol 96.30 mg/dL (0-200) 08/27/20 11:24 LDL Cholesterol Direct 52 mg/dL (<100) 08/27/20 11:24 VLDL Cholesterol 12.0 mg/dL (10-31) 08/27/20 11:24 HDL Cholesterol 35 mg/dL (>40) L 08/27/20 11:24 TSH 3.75 uIU/mL (0.47-4.68) 08/28/20 05:17 Urine Color JOSE 08/27/20 02:43 Urine Appearance SLIGHTLY-CLOUDY 08/27/20 02:43 Urine pH 5.0 (5.0-9.0) 08/27/20 02:43 Ur Specific [place] 1.021 08/27/20 02:43 Urine Protein 100 mg/dL (NEGATIVE) H 08/27/20 02:43 Urine Glucose (UA) NEGATIVE mg/dL (NEGATIVE) 08/27/20 02:43 Urine Ketones TRACE mg/dL (NEGATIVE) H 08/27/20 02:43 Urine Blood NEGATIVE (NEGATIVE) 08/27/20 02:43 Urine Nitrite NEGATIVE (NEGATIVE) 08/27/20 02:43 Ur Leukocyte Esterase NEGATIVE (NEGATIVE) 08/27/20 02:43 Urine WBC (Auto) 1 /HPF 08/27/20 02:43 Urine RBC (Auto) 0 /HPF 08/27/20 02:43 08/27/20 08/27/20 08/27/20 01:17 06:13 13:30 Troponin I 0.044 0.027 0.030 NT-Pro-B Natriuret Pep 47576 H 08/30/20 05:41 Troponin I NT-Pro-B Natriuret Pep 60005 H Current Medication List Generic Name Dose Route Start Last Admin Trade Name Freq PRN Reason Stop Dose Admin Acetaminophen 650 mg 08/27/20 03:09 Acetaminophen 325 Mg Tablet PO 09/26/20 03:08 Q4HP PRN FEVER >101 Albuterol/Ipratropium 3 ml 08/27/20 03:09 Ipratropium/Albuterol 0.5-2.5 Mg/3 Ml Ampul NEB 09/26/20 03:08 RTQ6HP PRN SHORTNESS OF BREATH Aspirin 81 mg 08/27/20 10:00 08/29/20 10:38 Aspirin 81 Mg Tablet, Chewable PO 09/26/20 09:59 81 mg DAILY SHANTA Administration Atorvastatin Calcium 80 mg 08/27/20 22:00 08/29/20 21:15 Atorvastatin Calcium 40 Mg Tablet PO 09/26/20 21:59 80 mg QHS SHANTA Administration Carvedilol 3.125 mg 08/28/20 10:00 08/29/20 21:15 Carvedilol 3.125 Mg Tablet PO 09/27/20 09:59 3.125 mg Q12 SHANTA Administration Clopidogrel Bisulfate 75 mg 08/27/20 10:00 08/29/20 10:37 Clopidogrel Bisulfate 75 Mg Tablet PO 09/26/20 09:59 75 mg DAILY SHANTA Administration Dexamethasone Sodium Phosphate 6 mg 08/27/20 16:00 08/29/20 13:22 Dexamethasone Sod Phosphate Inj 4 Mg/1 Ml Vial IV 09/26/20 15:59 6 mg DAILY SHANTA Administration Dextrose 12.5 gm 08/27/20 03:39 Dextrose 50%-Water 25 Gm/50 Ml Disp.Syrin IV 09/26/20 03:38 PRN PRN FOR BG 50-69 IN ALERT PATIENT Protocol Dextrose 25 gm 08/27/20 03:39 Dextrose 50%-Water 25 Gm/50 Ml Disp.Syrin IV 09/26/20 03:38 PRN PRN PER PROTOCOL Protocol Enoxaparin Sodium 40 mg 08/27/20 10:00 08/29/20 10:52 Enoxaparin Sodium Inj 40 Mg/0.4 Ml Disp.Syrin SUBCUT 09/26/20 09:59 40 mg DAILY SHANTA Administration Famotidine 20 mg 08/27/20 10:00 08/29/20 21:15 Famotidine 20 Mg Tablet PO 09/26/20 09:59 20 mg Q12 SHANTA Administration Furosemide 40 mg 08/27/20 10:00 08/29/20 21:16 Furosemide Inj/Pf 40 Mg/4 Ml Sdv IV 09/26/20 09:59 40 mg Q12 SHANTA Administration Glucagon 1 mg 08/27/20 03:39 Glucagon,Human Recomb 1 Mg Inj IM 09/26/20 03:38 PRN PRN Evaluate for BG < 70 Protocol Glucose 15 gm 08/27/20 03:39 Dextrose 40% Gel 15 Gm Tube PO 09/26/20 03:38 PRN PRN FOR BG 50-69 IN ALERT PATIENT Protocol Glucose 30 gm 08/27/20 03:39 Dextrose 40% Gel 15 Gm Tube PO 09/26/20 03:38 PRN PRN FOR BG < 50 IN ALERT PATIENT Protocol Insulin Human Regular 0 - 12 unit 08/27/20 08:00 08/29/20 21:17 Insulin Reg, Human 100 Unit/Ml 3 Ml Vial (Pyx) SUBCUT 09/26/20 07:59 6 unit ACHS SHANTA Administration Protocol Nicotine 1 each 08/27/20 15:20 Nicotine 21 Mg/24 Hr Patch.Td24 TD 09/26/20 15:19 DAILYP PRN WITHDRAWAL SYMPTOMS Sacubitril/Valsartan 1 tab 08/28/20 11:00 08/29/20 21:30 Sacubitril/Valsartan 24 Mg/26 Mg Tablet PO 09/27/20 10:59 1 tab Q12 SHANTA Administration Discontinued Medications Generic Name Dose Route Start Last Admin Trade Name Freq PRN Reason Stop Dose Admin Atorvastatin Calcium 40 mg 08/27/20 22:00 Atorvastatin Calcium 40 Mg Tablet PO 09/26/20 21:59 QHS SHANTA Azithromycin 500 mg 08/27/20 02:22 08/27/20 03:12 Azithromycin Inj 500 Mg Vial IV 08/27/20 02:23 500 mg IVBAG (ED) ONE Administration Bumetanide 1 mg 08/27/20 02:22 08/27/20 03:13 Bumetanide Inj/Pf 1 Mg/4 Ml Sdv IV 08/27/20 02:23 1 mg NOW ONE Administration Dexamethasone Sodium Phosphate 10 mg 08/27/20 02:23 08/27/20 03:12 Dexamethasone Sod Phos Inj 10 Mg/1 Ml Vial IV 08/27/20 02:24 10 mg NOW ONE Administration Famotidine 20 mg 08/27/20 02:22 08/27/20 03:12 Famotidine Inj/Pf 20 Mg/2 Ml Sdv IV 08/27/20 02:23 20 mg NOW ONE Administration Losartan Potassium 12.5 mg 08/27/20 10:00 08/27/20 09:12 Losartan Potassium 25 Mg Tablet PO 09/26/20 09:59 12.5 mg DAILY SHANTA Administration Metoprolol Succinate 12.5 mg 08/27/20 10:00 08/27/20 09:11 Metoprolol Succinate 25 Mg Tab.Sr.24h PO 09/26/20 09:59 12.5 mg DAILY SHANTA Administration Oxycodone/Acetaminophen 1 tab 08/27/20 03:09 08/27/20 18:07 Oxycodone-Acetaminophen 5-325 Mg Tablet PO 09/03/20 03:08 1 tab Q6HP PRN Administration FOR PAIN SCALE 3-5 Oxycodone/Acetaminophen 1 tab 08/28/20 07:50 Oxycodone-Acetaminophen 5-325 Mg Tablet PO 09/04/20 07:46 Q8HP PRN FOR PAIN SCALE 3-5 Assessment & Plan - Diagnosis (1) Coronary artery disease Qualifiers: Coronary Disease-Associated Artery/Lesion type: [place] artery [place] vs. transplanted heart: [place] heart Associated angina: without angina Qualified Code(s): I25.10 - Atherosclerotic heart disease of [place] coronary artery without angina pectoris Is this a current diagnosis for this admission?: Yes Plan: The patient is status post PCI to unknown vessel approximately 1 year ago. Unfortunately he does not remember any details of his coronary intervention. He has remained hemodynamically stable and free of ischemic symptoms with a detectable but indeterminate troponin. He is currently on GDMT. Recommendations: -Continue with current medical management. -Get old cardiovascular records. -Cardiology does not have new recommendations therefore we will sign off the case. I will arrange for cardiology outpatient follow-up with [facility] physicians unless the patient is already established with a different area intelligence technician. (2) Heart failure with reduced ejection fraction Is this a current diagnosis for this admission?: Yes Plan: Likely ischemic in etiology. He has responded very well to diuresis and is currently negative 4.7 L in his net fluid balance since admission with a 35% de crease in his BNP. He is asymptomatic this morning. There has been no recurrences of his ventricular tachycardia. At this point, I believe he has reached maximum benefit from inpatient care at least from the cardiovascular standpoint and his heart failure medications can be optimized in the outpatient setting. The most important question at this point is whether or not a LifeVest should be obtained prior to discharge. Unfortunately, I do not believe that the patient quite understands his cardiovascular issues and had been noncompliant in the past therefore I do not think he is a good candidate for the device. Besides, he has not experienced any sustained ventricular dysrhythmias. I will arrange for outpatient follow-up with our office unless he desires to follow-up with his prior area intelligence technician. Recommendations: - p.o. Lasix 40 mg twice daily. -Outpatient potassium chloride to replace his potassium given his Lasix therapy. -Continue with Entresto, baby aspirin, Plavix, Lipitor and carvedilol at current doses. -I will arrange for cardiology follow-up with our office unless the patient wants to follow-up with his prior area intelligence technician. -Cardiology will sign off the case for now. (3) Pulmonary hypertension Is this a current diagnosis for this admission?: Yes Plan: The patient does have evidence of severe pulmonary hypertension on echocardiography with secondary RV dilatation. This is likely secondary to his smoking history and extensive emphysema/COPD. Recommendations: -Encourage tobacco cessation. (4) COPD (chronic obstructive pulmonary disease) Qualifiers: COPD type: emphysema Emphysema type: unspecified Qualified Code(s): J43.9 - Emphysema, unspecified Is this a current diagnosis for this admission?: Yes
[2020-08-30] MEDS ORDERED: CALCIUM CARBONATE 600 MG/VITAMIN D3 400 UNIT TABLET PO ONE (09:00)
[2020-08-30] MEDS: DEXAMETHASONE SOD PHOSPHATE INJ 4 MG/1 ML VIAL IV SCH (09:30)
[2020-08-30] MEDS: ENOXAPARIN SODIUM INJ 40 MG/0.4 ML DISP.SYRIN SUBCUT SCH (09:32)
[2020-08-30] MEDS: INSULIN REG, HUMAN 100 UNIT/ML 3 ML VIAL (PYX) SUBCUT SCH ×4 (09:33→21:45)
[2020-08-30] MEDS: FUROSEMIDE 40 MG TABLET PO SCH ×2 (09:33→17:07)
[2020-08-30] MEDS: POTASSIUM CHLORIDE 10 MEQ TABLET.ER PO SCH (09:34)
[2020-08-30] MEDS: ASPIRIN 81 MG TABLET, CHEWABLE PO SCH (09:34)
[2020-08-30] MEDS: CARVEDILOL 3.125 MG TABLET PO SCH ×2 (09:34→21:44)
[2020-08-30] MEDS: SACUBITRIL/VALSARTAN 24 MG/26 MG TABLET PO SCH ×2 (09:34→22:06)
[2020-08-30] MEDS: CLOPIDOGREL BISULFATE 75 MG TABLET PO SCH (09:34)
[2020-08-30] MEDS: FAMOTIDINE 20 MG TABLET PO SCH ×2 (09:35→21:44)
--- NOTE | 2020-08-30 16:39 | PDOC PROGRESS REPORT ---
Subjective Date:: 08/30/20 Subjective:: Patient is resting comfortably upright in bed. He is on 3 L nasal oxygen with O2 sats 95 previously on 6 L with O2 sats 100%. Patient states that overall he is feeling. When discussing his fall at home prior to hospitalization becomes teary-eyed and tells me that scary for him as he could not get up. He tells me that though he feels better he still feels weak. Patient is being followed by physical therapy. Patient is frustrated with the recommendation that he must be spoon fed given dysphagia and increased aspiration risk. Explained to patient need for precautions, he relates understanding. Patient's daughter present at the time of evaluation. Together we discussed patient's options for disposition including home hospice vs rehabilitation center. Patient's daughter does not feel comfortable with patient coming home as he lives alone. Patient is agreeing to move forward with rehabilitation center. Refer to ACP note. No concerns per nursing. Reason For Visit: FALL, COPD Physical Exam Vital Signs: Temp Pulse Resp BP Pulse Ox 98.3 F 79 16 126/70 H 94 08/30/20 11:21 08/30/20 11:21 08/30/20 11:21 08/30/20 11:21 08/30/20 11:21 Intake & Output 08/29/20 08/30/20 08/31/20 06:59 06:59 06:59 Intake Total 240 626 Output Total 2810 1875 Balance -2900 -8209 Weight 66.3 kg 63.1 kg Additional comments: General appearance: PRESENT: no acute distress, well-developed, well-nourished Head exam: PRESENT: atraumatic, normocephalic Eye exam: PRESENT: Left eye with conjunctival injection but without drainage. conjunctiva pink, EOMI, PERRLA. ABSENT: scleral icterus Mouth exam: PRESENT: moist, tongue midline Respiratory exam: PRESENT: clear to auscultation bilaterally, prolonged expiratory phase, rhonchi, symmetrical, unlabored, other - 3L intranasal supplemental oxygenation with O2 sats 95%. ABSENT: rales, wheezes Cardiovascular exam: PRESENT: RRR, +S1, +S2. ABSENT: diastolic murmur, rubs, systolic murmur Pulses: PRESENT: normal dorsalis pedis pul Vascular exam: PRESENT: normal capillary refill Extremities exam: PRESENT: full ROM. ABSENT: calf tenderness, clubbing, pedal edema, +1 edema Neurological exam: PRESENT: alert, awake, oriented to person, oriented to place, oriented to time, oriented to situation, CN II-XII grossly intact, other - Slurred speech this is occasional and minimal. ABSENT: motor sensory deficit Psychiatric exam: PRESENT: appropriate affect, normal mood. ABSENT: homicidal ideation, suicidal ideation Skin exam: PRESENT: dry, intact, warm. ABSENT: cyanosis, rash Results Laboratory Results: 08/30/20 05:41 08/30/20 05:41 08/30/20 08/30/20 05:41 05:41 WBC 10.6 H RBC 5.02 Hgb 15.9 Hct 47.4 MCV 94 MCH 31.7 MCHC 33.6 RDW 15.0 H Plt Count 229 Sodium 138.5 Potassium 3.8 Chloride 100 Carbon Dioxide 30 Anion Gap 9 BUN 28 H Creatinine 0.96 Est GFR ( Amer) > 60 Glucose 161 H Calcium 8.0 L 08/27/20 02:43 Blood Blood Culture (PCR) - Final 08/27/20 08/27/20 08/27/20 01:17 06:13 13:30 Troponin I 0.044 0.027 0.030 NT-Pro-B Natriuret Pep [id number] H 08/30/20 05:41 Troponin I NT-Pro-B Natriuret Pep 44865 H Impressions: Carotid Doppler Study 08/27/20 00:00 IMPRESSION: Right: 70-90% stenosis ICA. Left: No significant stenosis. Chest/Abdomen CTA 08/27/20 00:00 IMPRESSION: 1. There is no pulmonary embolus. There is no aortic aneurysm. 2. Extensive pulmonary emphysema. Minimal pleural effusions. 3. Questionable thickening of the distal esophagus. Head MRI 08/27/20 00:00 IMPRESSION: Mild chronic microvascular ischemia. Right maxillary sinus disease. No acute intracranial imaging findings. EVIDENCE OF ACUTE STROKE: NO. Venous Doppler Study 08/27/20 00:00 IMPRESSION: NO EVIDENCE DVT OR SVT IN THE RIGHT LEG. Chest X-Ray 08/27/20 01:34 IMPRESSION: Progressive airspace and pleural disease right lung base when compared to prior. Head CT 08/27/20 01:34 IMPRESSION: No acute intracranial process is identified. Modified Barium Swallow 08/28/20 00:00 IMPRESSION: LARYNGEAL PENETRATION AND ASPIRATION ABOVE. PLEASE SEE SPEECH PATHOLOGIST REPORT FOR OTHER FINDINGS AND RECOMMENDATIONS. Assessment and Plan - Diagnosis (1) Acute on chronic congestive heart failure Qualifiers: Heart failure type: combined systolic and diastolic Qualified Code(s): I50.43 - Acute on chronic combined systolic (congestive) and diastolic (congestive) heart failure Is this a current diagnosis for this admission?: Yes Plan: BNP elevated at 25,000 -> 16,200 Admits to medication noncompliance Presenting sxs include: shortness of breath, orthopnea, leg swelling Chest x-ray shows a pattern of airspace disease, cardiomegaly and some sign of pulmonary vascular congestion Echocardiogram revealed LVEF 25% with severe pulmonary hypertension. - Continuous telemetry. - Oxygen and BiPAP prn - Requiring ~6L consistently. - Transition from IV lasix to PO lasix, as per cardio recommendations - Implement daily Potassium PO per cardio - Strict I&O's, daily weight, fluid restriction - Continue aspirin, statin and plavix. sr. manager marketing, patient educator, and transitions motorcoach operator. Cardiology consulted; appreciate Dr. Reich's evaluation recommendations. - Discontinued Toprol and losartan. - Continue carvedilol and Entresto. (2) Acute respiratory failure with hypoxia Is this a current diagnosis for this admission?: Yes Plan: Improved. Pt initially requiring 6L intranasal O2 to maintain adequate O2 sat - 95% on 3L today. - Given pulm/cardiac history our acceptable O2 sats between 88-93% Likely due to acute on chronic congestive heart failure and severe emphysema w/ exacerbation Chest x-ray shows progressive airspace pleural disease with cardiomegaly CTA chest showed severe emphysema but no evidence of pulmonary embolus, pulmonary edema, or infectious process. Transition to PO lasix today Continue strict I&O's, daily weight, fluid restriction Continue breathing treatment Steroid therapy initiated 08/27, continue for max of 5 days (end date: 08/31) Continue supplemental oxygen and BiPAP prn COVID negative (3) Elevated troponin Is this a current diagnosis for this admission?: Yes Plan: Likely secondary to type II NSTEMI given hypoxia Currently patient denies any chest pain - Has a history of CAD s/p PCI a year ago - Troponin 0.044-> 0.30 - EKG shows right bundle branch block Cardiology onboard, recommendations applied, see note Monitor on telemetry Continue aspirin, Plavix, atorvastatin, metoprolol. (4) Fall Qualifiers: Encounter type: initial encounter Qualified Code(s): W19.XXXA - Unspecified fall, initial encounter Is this a current diagnosis for this admission?: Yes Plan: In addition to fall leading to patient's presentation in the hospital pt reports progressive weakness of x1 month duration Likely due to physical deconditioning - CT head was negative for acute findings - MRI negative for CVA On fall precautions throughout hospitalization PT recommends skilled PT services. Plan to dc to SNF in one day. (5) History of coronary artery disease Is this a current diagnosis for this admission?: Yes Plan: CAD status post PCI a year ago, now chest pain-free Cardiac enzyme and EKG for elevated troponin as stated above - Requested records from [facility], pending Continue aspirin, Plavix and atorvastatin (6) Hypertension Is this a current diagnosis for this admission?: Yes Plan: BP within acceptable rage. Antihypertensives as above. (7) Tobacco dependence Is this a current diagnosis for this admission?: Yes Plan: Currently patient smokes 1 pack a day Discussed correlation between pts current medical state and extensive history of tobacco use Patient expressed understanding Provided tobacco cessation counseling Nicotine patches prn (8) Type 2 diabetes mellitus Qualifiers: Diabetes mellitus director long term care insulin use: without half-way use Diabetes mellitus complication status: without complication Qualified Code(s): E11.9 - Type 2 diabetes mellitus without complications Is this a current diagnosis for this admission?: Yes Plan: Blood sugar consistently in 200s. Hemoglobin A1C 7.3% Admits to non-compliance with medications x3 months. He is on Metformin and glipizide at home; continue to hold oral antidiabetic agents w/ admitted Started him on sliding scale insulin, Accu-Chek and hypoglycemia protocol On diabetic diet sr. manager marketing and patient educator consulted. Patient denies knowledge of home Metformin dose, plan to confirm dose with daughter. Consider increasing Metformin dose prior to discharge for better glycemic control. Patient educated on importance of medication compliance. Expresses understanding. (9) Slurred speech Is this a current diagnosis for this admission?: Yes Plan: Improved quality of speech today, although, patient states is worse than baseline. Head CT was negative for acute findings. Fortunately follow-up MRI head was negative for CVA. Did show right maxillary sinus disease. Carotid Doppler showed right ICA 70 to 90% stenosis; no significant findings to the left. Echocardiogram with LVEF 25% and severe pulmonary hypertension. Lipid panel is acceptable. A1c 7.3. Speech therapy consulted, see note for further details/clarification. - Patient determined to be at severe risk aspiration - Strict aspiration precautions - Spoon fed - Notable for moderate dysphagia (10) Suspected COVID-19 virus infection Is this a current diagnosis for this admission?: Yes Plan: Ruled out. - Covid negative. - D-dimer elevated to 3.32 - Ferritin 107, LDH 255, CRP 43. - CTA chest showed severe emphysema but no evidence of pulmonary embolus, pulmonary edema, or infectious process. (11) Elevated lactic acid level Is this a current diagnosis for this admission?: Yes Plan: Resolved. Likely due to hypoxia from heart failure Currently has no sign of sepsis (12) Swelling of left lower extremity Is this a current diagnosis for this admission?: Yes Plan: Resolved. Lower extremity Doppler negative for DVT. (13) COPD exacerbation Is this a current diagnosis for this admission?: Yes Plan: CT chest shows severe pulmonary emphysema. Presents with acute respiratory failure with hypoxia. Rhonchi are persistent on exam, though much improved. Discussed severity of COPD with patient and daughter. Informed that we have optimized therapy options at this time. They are understanding and receptive to this. Treatment as above. We will continue steroids, scheduled as needed nebulizer treatments, and encourage pulmonary toilet. (14) Leukocytosis Is this a current diagnosis for this admission?: Yes Plan: Neutrophilic leukocytosis 10.6 -> 14.0 -> 10.0 - Bump in WBC likely secondary to steroids - Continue to monitor on morning CBC BC 08/27/2020 with single tube + gram positive memo - Second blood culture without growth after 72 hours - High suspicion this is a contaminant, pt afebrile with decreasing leukocytosis - Repeat BC drawn, pending (15) Dysphagia Qualifiers: Dysphagia type: unspecified Qualified Code(s): R13.10 - Dysphagia, uns pecified Is this a current diagnosis for this admission?: Yes Plan: As per speech evaluation pt with moderate dysphagia and high risk aspiration - Dietary changes as per recommendations Patient and daughter were made aware of dysphagia and dietary recommendations made by speech evaluation. Patient was made aware of risk of aspiration and need for precautions when eating. He expresses understanding of this. - Plan Summary Summary: Trend WBC. F/u with F/u BC. DC to SNF for rehabilitation tomorrow. - Time Time Spent with patient: 35 or more minutes Anticipated Discharge Disposition: Group Home Facility Anticipated Discharge Timeframe: within 24 hours
--- NOTE | 2020-08-30 16:54 | ADVANCED CARE ---
- Diagnosis (1) Acute on chronic congestive heart failure Diagnosis Current: Yes (2) Acute respiratory failure with hypoxia Diagnosis Current: Yes (3) Elevated troponin Diagnosis Current: Yes (4) Fall Diagnosis Current: Yes (5) History of coronary artery disease Diagnosis Current: Yes (6) Hypertension Diagnosis Current: Yes (7) Tobacco dependence Diagnosis Current: Yes (8) Type 2 diabetes mellitus Diagnosis Current: Yes (9) Slurred speech Diagnosis Current: Yes (10) Suspected COVID-19 virus infection Diagnosis Current: Yes (11) Elevated lactic acid level Diagnosis Current: Yes (12) Swelling of left lower extremity Diagnosis Current: Yes (13) COPD exacerbation Diagnosis Current: Yes Attendance: Patient and his daughter, Beatris Dixon, at bedside. Resuscitation Status: Full Code Discussion: Discussed the patient's underlying medical conditions, clinical course, and current health. Discussed that his emphysema and CHF were nearly optimized and there was not likely to be significant improvement beyond this point. I did discuss that with continued medication and dietary compliance, along with physical therapy and speech therapy, he may regain some independence but will always be at risk for aspiration and relapse/exacerbation of his CHF/COPD. We discussed code status; specifically with regard to respiratory failure and potential future need for ventilatory support. Patient has ellected to remain a FULL CODE. He is interested in learning more about Palliative Care services as he recognizes that his overall health will likely decline with time. He did, spontaneously, state during our conversation that he would not ever desire a feeding tube. At this time, I introduced the MOST form and provided a copy for the patient and family to review. They were encouraged to discuss this together and to reach back out should they have any further questions or come to additional decisions. Care Planning Goals: FULL Code Palliative Care consultation/referral. Document(s) Completed: None; MOST form left with patient for review. Time Spent: 30 min
[2020-08-30] MEDS: ATORVASTATIN CALCIUM 40 MG TABLET PO SCH (21:44)
[2020-08-31] MEDS ORDERED: PREDNISONE 20 MG TABLET PO SCH (10:00)
[2020-08-31] MEDS ORDERED: DEXAMETHASONE SOD PHOS INJ 10 MG/1 ML VIAL IV SCH (10:00)
[2020-08-31] MEDS: FAMOTIDINE 20 MG TABLET PO SCH ×2 (11:10→22:29)
[2020-08-31] MEDS: FUROSEMIDE 40 MG TABLET PO SCH ×2 (11:10→18:47)
[2020-08-31] MEDS: ENOXAPARIN SODIUM INJ 40 MG/0.4 ML DISP.SYRIN SUBCUT SCH (11:10)
[2020-08-31] MEDS: ASPIRIN 81 MG TABLET, CHEWABLE PO SCH (11:11)
[2020-08-31] MEDS: CARVEDILOL 3.125 MG TABLET PO SCH ×2 (11:11→22:29)
[2020-08-31] MEDS: INSULIN REG, HUMAN 100 UNIT/ML 3 ML VIAL (PYX) SUBCUT SCH ×2 (11:12→12:13)
[2020-08-31] MEDS: CLOPIDOGREL BISULFATE 75 MG TABLET PO SCH (11:13)
[2020-08-31] MEDS: POTASSIUM CHLORIDE 10 MEQ TABLET.ER PO SCH (11:13)
[2020-08-31] MEDS: SACUBITRIL/VALSARTAN 24 MG/26 MG TABLET PO SCH ×2 (11:14→22:29)
--- NOTE | 2020-08-31 16:02 | PDOC DISCHARGE SUMMARY ---
Impression - Admit/DC Date/PCP Admission Date/Primary Care Provider: 08/27/20 02:48 ELPIDIO GRUBER PA-C Discharge Date: 09/01/20 - Discharge Diagnosis (1) Acute on chronic congestive heart failure Is this a current diagnosis for this admission?: Yes (2) Acute respiratory failure with hypoxia Is this a current diagnosis for this admission?: Yes (3) Elevated troponin Is this a current diagnosis for this admission?: Yes (4) Fall Is this a current diagnosis for this admission?: Yes (5) History of coronary artery disease Is this a current diagnosis for this admission?: Yes (6) Hypertension Is this a current diagnosis for this admission?: Yes (7) Tobacco dependence Is this a current diagnosis for this admission?: Yes (8) Type 2 diabetes mellitus Is this a current diagnosis for this admission?: Yes (9) Slurred speech Is this a current diagnosis for this admission?: Yes (10) Suspected COVID-19 virus infection Is this a current diagnosis for this admission?: Yes (11) Elevated lactic acid level Is this a current diagnosis for this admission?: Yes (12) Swelling of left lower extremity Is this a current diagnosis for this admission?: Yes (13) COPD exacerbation Is this a current diagnosis for this admission?: Yes (14) Leukocytosis Is this a current diagnosis for this admission?: Yes (15) Dysphagia Is this a current diagnosis for this admission?: Yes - Assessment Summary: Plan: Discharge to SNF on 09/01/2020. - Additional Information Resuscitation Status: Full Code Discharge Diet: Cardiac, Diabetic Discharge Activity: Activity As Tolerated, Balance Activity w/Rest, Weigh Daily Referrals: [facility] [Outside] RANDY KATHLEEN MD [NO LOCAL MD] - Follow up as needed Prescriptions: Aspirin [Aspirin 81 mg Chewable Tablet] 81 mg PO DAILY #30 tab.chew Carvedilol [Coreg 3.125 mg Tablet] 3.125 mg PO Q12 #30 tablet Sacubitril/Valsartan [Entresto 24 mg/26 mg Tablet] 1 tab PO Q12 #30 tablet Metformin HCl [Glucophage 500 mg Tablet] 500 mg PO BIDACBS #60 tab Furosemide [Lasix 40 mg Tablet] 40 mg PO BID #30 tablet Atorvastatin Calcium [Lipitor 40 mg Tablet] 80 mg PO QHS #30 tablet Acetaminophen [Tylenol 325 mg Tablet] 650 mg PO Q4HP PRN #30 tablet PRN Reason: Home Medications: Acetaminophen [Tylenol 325 mg Tablet] 650 mg PO Q4HP PRN #30 tablet 08/31/20 Aspirin [Aspirin 81 mg Chewable Tablet] 81 mg PO DAILY #30 tab.chew 08/31/20 Atorvastatin Calcium [Lipitor 40 mg Tablet] 80 mg PO QHS #30 tablet 08/31/20 Carvedilol [Coreg 3.125 mg Tablet] 3.125 mg PO Q12 #30 tablet 08/31/20 Furosemide [Lasix 40 mg Tablet] 40 mg PO BID #30 tablet 08/31/20 Ipratropium/Albuterol Sulfate [Duoneb 3 ml Ampul] 3 ml NEB [id number] PRN vial.neb 08/31/20 Metformin HCl [Glucophage 500 mg Tablet] 500 mg PO BIDACBS #60 tab 08/31/20 Nicotine [Nicoderm 21 mg/24 Hr Transderm Patch] 1 each TD DAILYP PRN patch.td24 08/31/20 Potassium Chloride [Klor-Con 10 Meq Tablet ER] 10 meq PO DAILY tablet.er 08/31/20 Sacubitril/Valsartan [Entresto 24 mg/26 mg Tablet] 1 tab PO Q12 #30 tablet 08/31/20 History of Present Illiness History of Present Illness: As per admitting provider: "KELSY ZHENG is a 75 year old male with a history of CAD status post PCI, type 2 diabetes, hypertension and CHF who is brought in by his daughter after he had a fall this evening around 8 PM. Patient states that while he was trying to walk to the bedroom using his walker he slipped and fell down to the ground and was unable to get up until his daughter found him. Patient states that he does not know if he lost consciousness but he denies any chest pain, palpitation or lightheadedness immediately before or during the incident. He states he has been having a progressively worsening shortness of breath for the past few weeks with associated lower extremity swelling. He discontinued taking all his medications about 3 months back stating that they make him feel tired, unable to do anything and he says he feels better when he is not on medications. Currently he reports worsening of his back pain. Patient denies any chest pain, dizziness, palpitation, fever, cough, runny nose, body aches, nausea, vomiting or any change in his bowel or urinary habit. He denies any recent sick contact history. On arrival at the ED patient was saturating 82% on room air and he was placed on BiPAP which improved his saturation above 95%." Hospital Course Hospital Course: Acute on chronic congestive heart failure / Hypertension Acute event secondary to admitted medication non-compliance. Continue the following medications. - Lasix 40mg PO BID + KCl 10meq PO daily. - Carvedilol 3.125mg q12hr. - Entresto 1tab PO q12hr. Please take weight daily, double lasix dose if 2-3lb gain x1 day or 5lb gain in 1 week. Restrict fluid intake <1500 daily. Restrict sodium intake <1500cc daily. Acute respiratory failure with hypoxia / COPD exacerbation / COVID negative Requiring ~3L intranasal oxygenation. Continue supplemental oxygenation and wean off gradually while at SNF. Goal of O2 sats between 88-93%. Completed x5 day course steroids 08/27 - 08/31. Continue duo neb and pulmo toilet. Elevated troponin / History of coronary artery disease Likely secondary to type II NSTEMI given hypoxia. Without chest pain. Continue ASA 81mg daily, Atorvastatin 80mg PO QHS. Fall /physical deconditioning Without acute fracture/dislocation. Evaluated by PT, recommends continued physical therapy 1 to 2 days/week upon discharge. Tobacco dependence Currently patient smokes 1 pack a day. Nicotine patch prn. Type 2 diabetes mellitus Admits to non-compliance with medications x3 months. Blood sugar consistently in 200s. Hemoglobin A1C 7.3%. Given his current state of health HemA1c goal 8.5%. Patient does not know home doses for Metformin or Glipizide. Discontinue Glipizide, increases risk of falls, patient known fall risk. Initiate Metformin 500mg BID today. Discontinue in-house humalin. Continue Accu- checks Slurred speech Improved over hospital course, pt and daughter state pt at baseline. Head CT and follow-up MRI head was negative for CVA. Carotid Doppler showed right ICA 70 to 90% stenosis. Echocardiogram with LVEF 25% and severe pulmonary hypertension. Lipid panel is acceptable. A1c 7.3. Swelling of left lower extremity Resolved. Lower extremity Doppler negative for DVT. Dysphagia As per speech evaluation pt with moderate dysphagia and high risk aspiration. Speech therapy recommends strict oral care, avoid use of straw, small bites and small sips, and 1:1 feeding assistance in home health. Physical Exam Vital Signs: Temp Pulse Resp BP Pulse Ox 98.6 F 78 18 138/64 H 96 08/31/20 12:00 08/31/20 12:00 08/31/20 12:00 08/31/20 12:00 08/31/20 12:00 Intake & Output 08/30/20 08/31/20 09/01/20 06:59 06:59 06:59 Intake Total 626 250 Output Total 1875 1510 Balance -1249 -1260 Weight 63.1 kg 60.2 kg 60.2 kg Additional comments: General appearance: PRESENT: no acute distress, well-developed, well-nourished. Currently on 4L intranasal oxygen with O2 sat 96%. Head exam: PRESENT: atraumatic, normocephalic Eye exam: PRESENT: Left eye with conjunctival injection but without drainage. conjunctiva pink, EOMI, PERRLA. ABSENT: scleral icterus Mouth exam: PRESENT: moist, tongue midline Respiratory exam: PRESENT: clear to auscultation bilaterally, prolonged expira tory phase, rhonchi, symmetrical, unlabored ABSENT: rales, wheezes Cardiovascular exam: PRESENT: RRR, +S1, +S2. ABSENT: diastolic murmur, rubs, systolic murmur Pulses: PRESENT: normal dorsalis pedis pul Vascular exam: PRESENT: normal capillary refill Extremities exam: PRESENT: full ROM. ABSENT: calf tenderness, clubbing, pedal edema, +1 edema Neurological exam: PRESENT: alert, awake, oriented to person, oriented to place, oriented to time, oriented to situation, CN II-XII grossly intact, other - Slurred speech this is occasional and minimal. ABSENT: motor sensory deficit Psychiatric exam: PRESENT: appropriate affect, normal mood. ABSENT: homicidal ideation, suicidal ideation Skin exam: PRESENT: dry, intact, warm. ABSENT: cyanosis, rash Results Laboratory Results: WBC 10.6 10^3/uL (4.0-10.5) H 08/30/20 05:41 RBC 5.02 10^6/uL (4.35-5.55) 08/30/20 05:41 Hgb 15.9 g/dL (13.5-17.0) 08/30/20 05:41 Hct 47.4 % (37.9-51.0) 08/30/20 05:41 MCV 94 fl (80-97) 08/30/20 05:41 MCH 31.7 pg (27.0-33.4) 08/30/20 05:41 MCHC 33.6 g/dL (32.0-36.0) 08/30/20 05:41 RDW 15.0 % (11.5-14.0) H 08/30/20 05:41 Plt Count 229 10^3/uL (150-450) 08/30/20 05:41 Lymph % (Auto) 5.4 % (13-45) L 08/28/20 05:17 [place] % (Auto) 6.7 % (3-13) 08/28/20 05:17 Eos % (Auto) 0.0 % (0-6) 08/28/20 05:17 Baso % (Auto) 0.2 % (0-2) 08/28/20 05:17 Absolute Neuts (auto) 9.5 10^3/uL (1.7-8.2) H 08/28/20 05:17 Absolute Lymphs (auto) 0.6 10^3/uL (0.5-4.7) 08/28/20 05:17 Absolute Monos (auto) 0.7 10^3/uL (0.1-1.4) 08/28/20 05:17 Absolute Eos (auto) 0.0 10^3/uL (0.0-0.6) 08/28/20 05:17 Absolute Basos (auto) 0.0 10^3/uL (0.0-0.2) 08/28/20 05:17 Seg Neutrophils % 87.7 % (42-78) H 08/28/20 05:17 PT 15.9 SEC (11.4-15.4) H 08/27/20 01:17 INR 1.25 08/27/20 01:17 D-Dimer 3.32 ug/mL (0.00-0.50) H 08/27/20 11:24 Carbonic Acid 1.23 mmol/L (1.05-1.35) 08/27/20 01:57 HCO3/H2CO3 Ratio 20:1 08/27/20 01:57 ABG pH 7.40 (7.35-7.45) 08/27/20 01:57 ABG pCO2 41.0 mmHg (35-45) 08/27/20 01:57 ABG pO2 57.4 mmHg (80-100) L 08/27/20 01:57 ABG HCO3 24.9 mmol/L (20-24) H 08/27/20 01:57 ABG Total CO2 26.2 mmol/L (23-27) 08/27/20 01:57 ABG O2 Saturation 90.0 % (94-98) L 08/27/20 01:57 ABG Base Excess 0.2 mmol/L 08/27/20 01:57 FiO2 15L 08/27/20 01:57 Sodium 138.5 mmol/L (137-145) 08/30/20 05:41 Potassium 3.8 mmol/L (3.6-5.0) 08/30/20 05:41 Chloride 100 mmol/L (98-107) 08/30/20 05:41 Carbon Dioxide 30 mmol/L (22-30) 08/30/20 05:41 Anion Gap 9 (5-19) 08/30/20 05:41 BUN 28 mg/dL (7-20) H 08/30/20 05:41 Creatinine 0.96 mg/dL (0.52-1.25) 08/30/20 05:41 Est GFR ( Amer) > 60 (>60) 08/30/20 05:41 Est GFR (MDRD) Non-Af > 60 (>60) 08/30/20 05:41 Glucose 161 mg/dL (75-110) H 08/30/20 05:41 POC Glucose 268 mg/dL (70-110) H 08/31/20 11:41 Hemoglobin A1c % 7.3 % (4.7-6.0) H 08/27/20 11:24 Lactic Acid 1.9 mmol/L (0.7-2.1) 08/27/20 10:06 Calcium 8.0 mg/dL (8.4-10.2) L 08/30/20 05:41 Magnesium 2.1 mg/dL (1.6-2.3) 08/28/20 05:17 Ferritin 107.00 ng/mL (17.9-464.0) 08/27/20 11:24 Total Bilirubin 1.8 mg/dL (0.2-1.3) H 08/27/20 01:17 Direct Bilirubin 0.5 mg/dL (0.0-0.4) H 08/27/20 01:17 Neonat Total Bilirubin Not Reportable 08/27/20 01:17 Neonat Direct Bilirubin Not Reportable 08/27/20 01:17 Neonat Indirect Bili Not Reportable 08/27/20 01:17 AST 37 U/L (17-59) 08/27/20 01:17 ALT 20 U/L (<50) 08/27/20 01:17 Alkaline Phosphatase 169 U/L (38-126) H 08/27/20 01:17 Lactate Dehydrogenase 255 U/L (120-246) H 08/27/20 11:24 Troponin I 0.030 ng/mL 08/27/20 13:30 C-Reactive Protein 43.6 mg/L (<10.0) H 08/27/20 11:24 NT-Pro-B Natriuret Pep 30034 pg/mL (<450) H 08/30/20 05:41 Total Protein 8.3 g/dL (6.3-8.2) H 08/27/20 01:17 Albumin 4.4 g/dL (3.5-5.0) 08/27/20 01:17 Triglycerides 62 mg/dL (<150) 08/27/20 11:24 Cholesterol 96.30 mg/dL (0-200) 08/27/20 11:24 LDL Cholesterol Direct 52 mg/dL (<100) 08/27/20 11:24 VLDL Cholesterol 12.0 mg/dL (10-31) 08/27/20 11:24 HDL Cholesterol 35 mg/dL (>40) L 08/27/20 11:24 TSH 3.75 uIU/mL (0.47-4.68) 08/28/20 05:17 Urine Color JOSE 08/27/20 02:43 Urine Appearance SLIGHTLY-CLOUDY 08/27/20 02:43 Urine pH 5.0 (5.0-9.0) 08/27/20 02:43 Ur Specific [place] 1.021 08/27/20 02:43 Urine Protein 100 mg/dL (NEGATIVE) H 08/27/20 02:43 Urine Glucose (UA) NEGATIVE mg/dL (NEGATIVE) 08/27/20 02:43 Urine Ketones TRACE mg/dL (NEGATIVE) H 08/27/20 02:43 Urine Blood NEGATIVE (NEGATIVE) 08/27/20 02:43 Urine Nitrite NEGATIVE (NEGATIVE) 08/27/20 02:43 Urine Bilirubin NEGATIVE (NEGATIVE) 08/27/20 02:43 Urine Urobilinogen 2.0 mg/dL (<2.0) H 08/27/20 02:43 Ur Leukocyte Esterase NEGATIVE (NEGATIVE) 08/27/20 02:43 Urine WBC (Auto) 1 /HPF 08/27/20 02:43 Urine RBC (Auto) 0 /HPF 08/27/20 02:43 U Hyaline Cast (Auto) 6 /LPF 08/27/20 02:43 Squamous Epi Cells Auto <1 /HPF 08/27/20 02:43 Urine Mucus (Auto) OCC /LPF 08/27/20 02:43 Urine Ascorbic Acid NEGATIVE (NEGATIVE) 08/27/20 02:43 Serum Alcohol < 10 mg/dL (NONE DETECTED) 08/27/20 01:17 COVID-19 Source See comment 08/27/20 03:20 COVID-19 (THAO) Not Detected (Not Detect) 08/27/20 03:20 08/27/20 08/27/20 08/27/20 01:17 06:13 13:30 Troponin I 0.044 0.027 0.030 NT-Pro-B Natriuret Pep 80444 H 08/30/20 05:41 Troponin I NT-Pro-B Natriuret Pep 36112 H Impressions: Carotid Doppler Study 08/27/20 00:00 IMPRESSION: Right: 70-90% stenosis ICA. Left: No significant stenosis. Chest/Abdomen CTA 08/27/20 00:00 IMPRESSION: 1. There is no pulmonary embolus. There is no aortic aneurysm. 2. Extensive pulmonary emphysema. Minimal pleural effusions. 3. Questionable thickening of the distal esophagus. Head MRI 08/27/20 00:00 IMPRESSION: Mild chronic microvascular ischemia. Right maxillary sinus disease. No acute intracranial imaging findings. EVIDENCE OF ACUTE STROKE: NO. Venous Doppler Study 08/27/20 00:00 IMPRESSION: NO EVIDENCE DVT OR SVT IN THE RIGHT LEG. Chest X-Ray 08/27/20 01:34 IMPRESSION: Progressive airspace and pleural disease right lung base when compared to prior. Head CT 08/27/20 01:34 IMPRESSION: No acute intracranial process is identified. Modified Barium Swallow 08/28/20 00:00 IMPRESSION: LARYNGEAL PENETRATION AND ASPIRATION ABOVE. PLEASE SEE SPEECH PATHOLOGIST REPORT FOR OTHER FINDINGS AND RECOMMENDATIONS. Stroke Is this a Stroke Patient?: No Acute Heart Failure Is this a Heart Failure Patient?: Yes Documentation of LVEF assessment?: Yes LVEF: LVEF Less Than or Equal to 35% Anticoagulant Therapy: Yes Discharged on Evidence-Based Beta Blockers: Yes Discharged on ARNI?: Yes Discharged on ARB?: N/A-Discharged on ARNI Discharged on ACEI?: N/A Discharged on ARNI For LVEF <35%, discharged on Aldosterone Antagonist?: No-document contraincations - Dc on Lasix alone Reason(s) not discharged on Aldosterone Antagonist: Other - dc on lasix alone Aldosterone Antagonist Reason - Other: dc lasix Follow-up Appointment scheduled within 7 days?: Yes
[2020-08-31] MEDS: METFORMIN HCL 500 MG TABLET PO SCH (18:47)
[2020-08-31] MEDS: ATORVASTATIN CALCIUM 40 MG TABLET PO SCH (22:30)
[2020-09-01] MEDS: METFORMIN HCL 500 MG TABLET PO SCH ×2 (08:31→17:25)
[2020-09-01] MEDS: CARVEDILOL 3.125 MG TABLET PO SCH ×2 (12:04→21:30)
[2020-09-01] MEDS: FUROSEMIDE 40 MG TABLET PO SCH ×2 (12:04→17:29)
[2020-09-01] MEDS: FAMOTIDINE 20 MG TABLET PO SCH ×2 (12:05→21:30)
[2020-09-01] MEDS: POTASSIUM CHLORIDE 10 MEQ TABLET.ER PO SCH (12:05)
[2020-09-01] MEDS: ASPIRIN 81 MG TABLET, CHEWABLE PO SCH (12:05)
[2020-09-01] MEDS: ENOXAPARIN SODIUM INJ 40 MG/0.4 ML DISP.SYRIN SUBCUT SCH (12:05)
[2020-09-01] MEDS: CLOPIDOGREL BISULFATE 75 MG TABLET PO SCH (12:05)
[2020-09-01] MEDS: SACUBITRIL/VALSARTAN 24 MG/26 MG TABLET PO SCH ×2 (12:14→21:30)
[2020-09-01] MEDS: INSULIN REG, HUMAN 100 UNIT/ML 3 ML VIAL (PYX) SUBCUT SCH (12:21)
[2020-09-01] MEDS ORDERED: DEXTROSE 40% GEL 15 GM TUBE PO PRN ×2 (15:32)
[2020-09-01] MEDS ORDERED: DEXTROSE 50%-WATER 25 GM/50 ML DISP.SYRIN IV PRN ×2 (15:32)
[2020-09-01] MEDS ORDERED: GLUCAGON,HUMAN RECOMB 1 MG INJ IM PRN (15:32)
[2020-09-01] MEDS: INSULIN LISPRO 100 UNIT/ML 3 ML VIAL SUBCUT SCH ×2 (17:29→21:41)
--- NOTE | 2020-09-01 17:55 | PDOC PROGRESS REPORT ---
Subjective Date:: 09/01/20 Subjective:: KELSY ZHENG is a 75 year old male with a history of CAD status post PCI, type 2 diabetes, hypertension and CHF who is brought in by his daughter after he had a fall this evening around 8 PM. Patient states that while he was trying to walk to the bedroom using his walker he slipped and fell down to the ground and was unable to get up until his daughter found him. Patient states that he does not know if he lost consciousness but he denies any chest pain, palpitation or lightheadedness immediately before or during the incident. He states he has been having a progressively worsening shortness of breath for the past few weeks with associated lower extremity swelling. He discontinued taking all his medications about 3 months back stating that they make him feel tired, unable to do anything and he says he feels better when he is not on medications. Currently he reports worsening of his back pain. Patient denies any chest pain, dizziness, palpitation, fever, cough, runny nose, body aches, nausea, vomiting or any change in his bowel or urinary habit. He denies any recent sick contact history. On arrival at the ED patient was saturating 82% on room air and he was placed on BiPAP which improved his saturation above 95%. 09/01/20 Assumed care today. prior notes reviewed. Patient admitted for COPD exacerbation and fall. Patient was seen and examined at bedside with his daughter in the room as well. He denied any SOB. He is at his baseline O2 needs. He is still awaiting insurance approval for placement. Daughter expressed concern that her father may not be able to go home at all since she feels that his ability to take care of himself has significantly decreased. Reason For Visit: FALL, COPD Physical Exam Vital Signs: Temp Pulse Resp BP Pulse Ox 97.7 F 73 18 137/74 H 97 09/01/20 11:56 09/01/20 11:56 09/01/20 11:56 09/01/20 11:56 09/01/20 15:59 Intake & Output 08/31/20 09/01/20 09/02/20 06:59 06:59 06:59 Intake Total 250 500 Output Total 1510 1300 550 Balance -1260 -1300 -50 Weight 60.2 kg 60.2 kg General appearance: PRESENT: cooperative, mild distress, other - On 3 L of oxyg en via nasal cannula Head exam: PRESENT: atraumatic, normocephalic Eye exam: PRESENT: EOMI, PERRLA Mouth exam: PRESENT: moist Neck exam: PRESENT: full ROM Respiratory exam: PRESENT: decreased breath sounds, symmetrical. ABSENT: rales, rhonchi, wheezes Cardiovascular exam: PRESENT: RRR, +S1, +S2 Pulses: PRESENT: +2 pedal pulses bilateral GI/Abdominal exam: PRESENT: normal bowel sounds, soft. ABSENT: rebound, tenderness Extremities exam: PRESENT: full ROM Musculoskeletal exam: PRESENT: full ROM Neurological exam: PRESENT: alert, awake, oriented to person, oriented to situation. ABSENT: oriented to place, oriented to time Psychiatric exam: PRESENT: normal mood Results Laboratory Results: 08/30/20 05:41 08/30/20 05:41 08/27/20 06:13 Blood Blood Culture - Final NO GROWTH IN 5 DAYS 08/27/20 02:43 Blood Blood Culture (PCR) - Final 08/27/20 02:43 Blood Blood Culture - Final Corynebacterium Species 08/27/20 08/27/20 08/27/20 01:17 06:13 13:30 Troponin I 0.044 0.027 0.030 NT-Pro-B Natriuret Pep [id number] H 08/30/20 05:41 Troponin I NT-Pro-B Natriuret Pep [id number] H Impressions: Carotid Doppler Study 08/27/20 00:00 IMPRESSION: Right: 70-90% stenosis ICA. Left: No significant stenosis. Chest/Abdomen CTA 08/27/20 00:00 IMPRESSION: 1. There is no pulmonary embolus. There is no aortic aneurysm. 2. Extensive pulmonary emphysema. Minimal pleural effusions. 3. Questionable thickening of the distal esophagus. Head MRI 08/27/20 00:00 IMPRESSION: Mild chronic microvascular ischemia. Right maxillary sinus disease. No acute intracranial imaging findings. EVIDENCE OF ACUTE STROKE: NO. Venous Doppler Study 08/27/20 00:00 IMPRESSION: NO EVIDENCE DVT OR SVT IN THE RIGHT LEG. Chest X-Ray 08/27/20 01:34 IMPRESSION: Progressive airspace and pleural disease right lung base when compared to prior. Head CT 08/27/20 01:34 IMPRESSION: No acute intracranial process is identified. Modified Barium Swallow 08/28/20 00:00 IMPRESSION: LARYNGEAL PENETRATION AND ASPIRATION ABOVE. PLEASE SEE SPEECH PATHOLOGIST REPORT FOR OTHER FINDINGS AND RECOMMENDATIONS. Assessment and Plan - Diagnosis (1) Acute on chronic congestive heart failure Qualifiers: Heart failure type: combined systolic and diastolic Qualified Code(s): I50.43 - Acute on chronic combined systolic (congestive) and diastolic (congestive) heart failure Is this a current diagnosis for this admission?: Yes Plan: BNP elevated at 25,000 -> 16,200 Admits to medication noncompliance Presenting sxs include: shortness of breath, orthopnea, leg swelling Chest x-ray shows a pattern of airspace disease, cardiomegaly and some sign of pulmonary vascular congestion Echocardiogram revealed LVEF 25% with severe pulmonary hypertension. - Transition from IV lasix to PO lasix, as per cardio recommendations - Implement daily Potassium PO per cardio - Strict I&O's, daily weight, fluid restriction - Continue aspirin, statin and plavix. - Continue carvedilol and Entresto. -Cardiology consulted; appreciate Dr. Reich's evaluation recommendations. (2) Acute respiratory failure with hypoxia Is this a current diagnosis for this admission?: Yes Plan: Improved. Pt initially requiring 6L intranasal O2 to maintain adequate O2 sat - 95% on 3L today. - Given pulm/cardiac history our acceptable O2 sats between 88-93% Likely due to acute on chronic congestive heart failure and severe emphysema w/ exacerbation Chest x-ray shows progressive airspace pleural disease with cardiomegaly CTA chest showed severe emphysema but no evidence of pulmonary embolus, pulmonary edema, or infectious process. Continue breathing treatment Steroid therapy initiated 08/27, continue for max of 5 days (end date: 08/31) Continue supplemental oxygen and BiPAP pr COVID negative (3) COPD (chronic obstructive pulmonary disease) Qualifiers: COPD type: emphysema Emphysema type: unspecified Qualified Code(s): J43.9 - Emphysema, unspecified Is this a current diagnosis for this admission?: Yes Plan: - CT chest shows extensive emphysema, unclear if he was ever on any inhaler - started on Trelegy - will need LAMA and LABA on discharge - PFT outpatient (4) Coronary artery disease Qualifiers: Coronary Disease-Associated Artery/Lesion type: [place] artery [place] vs. transplanted heart: [place] heart Associated angina: without angina Qualified Code(s): I25.10 - Atherosclerotic heart disease of [place] coronary artery without angina pectoris Is this a current diagnosis for this admission?: Yes Plan: - no chest pain. CAD w/ PCI 1 year ago - continue aspirin, plavix, lipitor, entresto and carvedilol - outpatient Cardio follow up (5) Elevated troponin Is this a current diagnosis for this admission?: Yes Plan: Likely secondary to type II NSTEMI given hypoxia Currently patient denies any chest pain - Has a history of CAD s/p PCI a year ago - Troponin 0.044-> 0.30 - EKG shows right bundle branch block Cardiology onboard, Monitor on telemetry Continue aspirin, Plavix, atorvastatin, metoprolol. (6) Dysphagia Qualifiers: Dysphagia type: unspecified Qualified Code(s): R13.10 - Dysphagia, unspecified Is this a current diagnosis for this admission?: Yes Plan: As per speech evaluation pt with moderate dysphagia and high risk aspiration - Dietary changes as per recommendations Patient and daughter were made aware of dysphagia and dietary recommendations made by speech evaluation. Patient was made aware of risk of aspiration and need for precautions when eating. He expresses understanding of this. (7) Fall Qualifiers: Encounter type: initial encounter Qualified Code(s): W19.XXXA - Unspecified fall, initial encounter Is this a current diagnosis for this admission?: Yes Plan: In addition to fall leading to patient's presentation in the hospital pt reports progressive weakness of x1 month duration Likely due to physical deconditioning - CT head was negative for acute findings - MRI negative for CVA On fall precautions throughout hospitalization PT recommends skilled PT services. Plan to dc to SNF in one day. (8) Slurred speech Is this a current diagnosis for this admission?: Yes Plan: Improved quality of speech today, although, patient states is worse than baseline. Head CT was negative for acute findings. Fortunately follow-up MRI head was negative for CVA. Did show right maxillary sinus disease. Carotid Doppler showed right ICA 70 to 90% stenosis; no significant findings to the left. Echocardiogram with LVEF 25% and severe pulmonary hypertension. Lipid panel is acceptable. A1c 7.3. Speech therapy consulted, see note for further details/clarification. - Patient determined to be at severe risk aspiration - Strict aspiration precautions - Spoon fed - Notable for moderate dysphagia (9) Tobacco dependence Is this a current diagnosis for this admission?: Yes Plan: Currently patient smokes 1 pack a day Discussed correlation between pts current medical state and extensive history of tobacco use Patient expressed understanding Provided tobacco cessation counseling Nicotine patches prn (10) Swelling of left lower extremity Is this a current diagnosis for this admission?: Yes Plan: Resolved. Lower extremity Doppler negative for DVT. (11) Type 2 diabetes mellitus Qualifiers: Diabetes mellitus termite exterminator insulin use: without termite exterminator use Diabetes mellitus complication status: without complication Qualified Code(s): E11.9 - Type 2 diabetes mellitus without complications Is this a current diagnosis for this admission?: Yes Plan: Blood sugar consistently in 200s. Hemoglobin A1C 7.3% Admits to non-compliance with medications x3 months. 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 Patient denies knowledge of home Metformin dose, plan to confirm dose with daughter. Consider increasing Metformin dose prior to discharge for better glycemic control. Patient educated on importance of medication compliance. Expresses understanding. - Plan Summary Summary: Plan: Discharge to SNF on 09/01/2020. - Time Time Spent with patient: 25-34 minutes Medications reviewed and adjusted accordingly: Yes Anticipated Discharge Disposition[facility] Anticipated Discharge Timeframe: within 48 hours
[2020-09-01] MEDS: FLUTICASONE/UMECLIDIN/VILANTER 100-62.5-25 MCG/DOSE IH SCH (21:29)
[2020-09-01] MEDS: ATORVASTATIN CALCIUM 40 MG TABLET PO SCH (21:30)
[2020-09-02] MEDS: CARVEDILOL 3.125 MG TABLET PO SCH (09:49)
[2020-09-02] MEDS: ASPIRIN 81 MG TABLET, CHEWABLE PO SCH (09:49)
[2020-09-02] MEDS: CLOPIDOGREL BISULFATE 75 MG TABLET PO SCH (09:50)
[2020-09-02] MEDS: POTASSIUM CHLORIDE 10 MEQ TABLET.ER PO SCH (09:50)
[2020-09-02] MEDS: METFORMIN HCL 500 MG TABLET PO SCH (09:50)
[2020-09-02] MEDS: FUROSEMIDE 40 MG TABLET PO SCH (09:50)
[2020-09-02] MEDS: FAMOTIDINE 20 MG TABLET PO SCH (09:50)
[2020-09-02] MEDS ORDERED: INSULIN GLARGINE,HUM.REC.ANLOG 1,000 UNIT/10 ML VIAL SUBCUT SCH (10:00)
[2020-09-02] MEDS: FLUTICASONE/UMECLIDIN/VILANTER 100-62.5-25 MCG/DOSE IH SCH (10:03)
[2020-09-02] MEDS: SACUBITRIL/VALSARTAN 24 MG/26 MG TABLET PO SCH (10:05)
[2020-09-02] MEDS: ENOXAPARIN SODIUM INJ 40 MG/0.4 ML DISP.SYRIN SUBCUT SCH (10:06)
[2020-09-02] MEDS: INSULIN LISPRO 100 UNIT/ML 3 ML VIAL SUBCUT SCH ×2 (10:06→11:59)
[2020-09-02 11:56] VITALS: BP 131/69
== END 2020-09-02 12:41 | DRG 280 ==
LOC: ER 01:11 → EH 02:48 → 3W 05:12 → 4S 08-28 13:01
PROVIDERS: ADMIT Student in an Organized Health Care Education/Training Program; ATTEND Internal Medicine
PROC: 5A09557 Assistance with Respiratory Ventilation, Greater than 96 Consecutive Hours, Continuous Positive Airway Pressure (ICD-10-PCS; principal; 2020-08-27)
PROC: B24BZZ4 Ultrasonography of Heart with Aorta, Transesophageal (ICD-10-PCS; 2020-08-27)
DX: I11.0 Hypertensive heart disease with heart failure (principal); J96.01 Acute respiratory failure with hypoxia; I21.A1 Myocardial infarction type 2; I50.43 Acute on chronic combined systolic (congestive) and diastolic (congestive) heart failure; R79.89 Other specified abnormal findings of blood chemistry; I25.10 Atherosclerotic heart disease of native coronary artery without angina pectoris; E11.9 Type 2 diabetes mellitus without complications; R47.81 Slurred speech; M79.89 Other specified soft tissue disorders; R13.10 Dysphagia, unspecified; I27.20 Pulmonary hypertension, unspecified; Z60.2 Problems related to living alone; J43.9 Emphysema, unspecified; W01.0XXA Fall on same level from slipping, tripping and stumbling without subsequent striking against object, initial encounter; I45.10 Unspecified right bundle-branch block; F17.210 Nicotine dependence, cigarettes, uncomplicated; Y92.009 Unspecified place in unspecified non-institutional (private) residence as the place of occurrence of the external cause; Z20.828 Contact with and (suspected) exposure to other viral communicable diseases; Z79.899 Other long term (current) drug therapy; Z79.82 Long term (current) use of aspirin; Z79.84 Long term (current) use of oral hypoglycemic drugs; Z95.5 Presence of coronary angioplasty implant and graft; Z91.14 Patient's other noncompliance with medication regimen
CPT/HCPCS: 36415; 70450; 70551; 71045; 71275; 74230; 80048; 80053; 80061; 80307; 81001; 82728; 82803; 82962; 83036; 83605; 83615; 83735; 83880; 84443; 84484; 85025; 85027; 85379; 85610; 86140; 87040; 87077; 87150; 87635; 93005; 93010; 93306; 93880; 93971; 94660; 99285; 0241U; C9803; G0378; J0456; J1100; J1650; J1815; J1940; J3490; S0028